=== PATIENT | male | born 1965 | race Caucasian/White ===

== ENCOUNTER 2020-05-21 12:00 | Outpatient (REF) | payer BC, SELFPAY ==
[2020-05-21 13:55] LABS: MANUAL DIFF FLAG NO
[2020-05-21 14:00] LABS: Basophils Percent Auto 0.4 % (0-2); Eosinophils Absolute Auto 0.1 X10*3/uL (0.0-0.4); Hematocrit 51.5 % (42-52); Imm Gran Abs Auto 0.04 X10*3/uL (0.00-0.03); Imm Gran Pct Auto 0.6 % (0.0-0.4); Lymphocytes Absolute Auto 2.3 X10*3/uL (1.2-4.9); Lymphocytes Percent Auto 31.3 % (20-40); Mean Corpuscular Hemoglobin 29.4 pg (27.0-33.0); Mean Corpuscular Volume 88.9 fL (80-98); Mean Platelet Volume 9.1 fL (9.4-12.4); Monocytes Absolute Auto 0.6 X10*3/uL (0.1-1.2); Monocytes Percent Auto 8.5 % (2-11); Neutrophils Absolute Auto 4.2 X10*3/uL (2.0-8.3); Neutrophils Percent Auto 58.2 % (45-73); Platelet Count 171 X10*3/uL (160-400); Red Blood Count 5.79 X10*6/uL (4.60-5.80); Red Cell Distribution Width 12.9 % (11.0-16.0); White Blood Count 7.2 X10*3/uL (4.8-10.8)
[2020-05-21 14:23] LABS: Anion Gap 15 (12-20); Blood Urea Nitrogen 19 mg/dL (9-16); Calcium 9.2 mg/dL (8.4-10.2); Carbon Dioxide 29 mmol/L (22-29); Chloride 100 mmol/L (96-108); Cholesterol 192 mg/dL; Estimated Glomerular Filt Rate > 60; Glucose Fasting 127 mg/dL (60-99); HDL Cholesterol 40 mg/dL; LDL Cholesterol Calculated 126 mg/dl; Sodium 140 mmol/L (135-145); Triglycerides 132 mg/dL
== END 2020-05-21 12:01 | disposition home or self-care (01) ==
LOC: HO.HMGCLDS 12:00
PROVIDERS: PCP Nurse Practitioner Family; Visit Provider Nurse Practitioner Family
DX: E11.9 Type 2 diabetes mellitus without complications (principal)
CPT/HCPCS: 36415; 80048; 80061; 85025

== ENCOUNTER → 2021-02-17 09:03 | Outpatient (BNVA) | payer BC, SELFPAY | PROVIDERS: PCP Nurse Practitioner Family; Referring Provider Nurse Practitioner Family; Visit Provider Physician Assistant ==

== ENCOUNTER 2021-03-10 07:13 | Outpatient (REF) | payer BC, SELFPAY ==
[2021-03-10 11:33] LABS: Appearance Urine CLEAR; Color Urine YELLOW; Glucose Urine UA >=1000 MG/DL (NEG); Leukocyte Esterase Urine NEG (NEG); Nitrite Urine NEG (NEG); UACC Culture Trigger NO; Urine Blood 1+ (NEG); Urine Ketones 15 MG/DL (NEG); Urine Protein NEG (NEG-TRACE)
[2021-03-10 11:59] LABS: Mucus Urine TRACE /LPF; Squamous Epithelial Cell Urine TRACE /LPF; WBC Urine 0 /HPF (0-4)
[2021-03-10 12:01] LABS: Estimated Average Glucose 200 mg/dL; Hemoglobin A1c % 8.6 %
[2021-03-10 12:21] LABS: Alanine Aminotransferase 29 U/L (0-40); Albumin Level 4.4 g/dL (3.5-5.0); Alkaline Phosphatase 65 U/L (39-117); Anion Gap 14 (12-20); Aspartate Amino Transferase 21 U/L (5-37); Bilirubin Total 1.4 mg/dL (0.0-1.0); Blood Urea Nitrogen 18 mg/dL (9-16); Carbon Dioxide 23 mmol/L (22-29); Chloride 104 mmol/L (96-108); Cholesterol 197 mg/dL; Estimated Glomerular Filt Rate > 60; Glucose Fasting 161 mg/dL (60-99); HDL Cholesterol 37 mg/dL; LDL Cholesterol Calculated 129 mg/dl; Potassium 4.1 mmol/L (3.3-5.1); Sodium 137 mmol/L (135-145); Total Protein 6.4 g/dL (6.5-8.0); Triglycerides 159 mg/dL
[2021-03-10 12:28] LABS: Creatinine Urine 73.63 mg/dL; Microalbum/Creatinine Ratio Ur 13.5 ug/mg cr
[2021-03-10 12:31] LABS: Prostate Specific Antigen Scr 0.26 ng/mL (<0.05-4.0)
== END 2021-03-10 07:14 | disposition home or self-care (01) ==
LOC: HO.HMGCLDS 07:13
PROVIDERS: PCP Nurse Practitioner Family; Visit Provider Nurse Practitioner Family
DX: Z00.00 Encounter for general adult medical examination without abnormal findings (principal); Z12.5 Encounter for screening for malignant neoplasm of prostate; E11.9 Type 2 diabetes mellitus without complications
CPT/HCPCS: 36415; 80053; 80061; 81001; 82043; 83036; 84153; 84443

== ENCOUNTER 2021-03-26 10:47 | Day surgery (SDC) | payer BC, SELFPAY ==
[2021-03-19 16:30] VITALS: BMI 29.7
--- NOTE | 2021-03-25 12:54 | HO.ANESPROP2 ---
Documented by User: Marce Figueroa NP 03/25/21 12:58 HPI - Anesthesia Eval Consult details Narrative: 55yo M for Colonoscopy Eliquis for DVT - OK to hold [address] Clara MEDINA Active Problems Active Problems: All Active Problems (Updated 02/17/21 @ 09:42 by Maile Carver PA-C) Screening for colon cancer (Acute) Screening PSA (prostate specific antigen) (Acute) Physical exam (Acute) Screening PSA (prostate specific antigen) (Acute) DVT (deep venous thrombosis) (Chronic) Diabetes (Acute) Past Medical History Medical History (Updated 03/26/21 @ 11:02 by Georgia Stephens RN) Anal fistula Diabetes DVT (deep venous thrombosis) Elevated cholesterol Family History Family History Father No problems noted. Mother Pancreatic cancer Paternal Grandfather No problems noted. Brother Myocardial infarction Sister Breast cancer Surgical History Surgical History (Updated 03/26/21 @ 11:02 by Georgia Stephens RN) Hx of colonoscopy Social History Social History Housing: Apartment Alcohol intake: current Alcohol intake frequency: a few times a week Patient Tobacco Use Status: Current everyday Tobacco user Tobacco use type: Cigarette Cigarettes Per Day: 10 Second Hand Smoke Exposure: No Use of substances other than those prescribed or required for medical reasons: Yes Substance Use Frequency: Occasionally Are you DNR?: No Advance Directives: No Advance Directives Information Provided: Yes Current occupational status: employed Meds Allergies Allergy/AdvReac Type Severity Reaction Status Date / Time amoxicillin [Amoxicillin] Allergy Unknown UNKNOWN Verified 03/26/21 11:02 erythromycin base Allergy Unknown Unknown Verified 03/26/21 11:02 Environmental Allergy Unknown RUNNY NOSE Uncoded 03/17/21 09:57 Home Medications Medication Instructions Recorded Confirmed Last Taken Type loratadine 10 mg tablet (Allergy 10 mg PO DAILY PRN 12/01/20 03/17/21 Unknown History Relief (loratadine)) boron 6 mg tablet 3 mg PO 03/26/21 Unknown History cholecalciferol (vitamin D3) 25 25 mcg PO DAILY 03/26/21 03/26/21 Unknown History mcg (1,000 unit) tablet (Vitamin D3) cinnamon bark 500 mg capsule 1,000 mg PO DAILY 03/26/21 03/26/21 Unknown History (Cinnamon) empagliflozin 25 mg tablet 10 mg PO DAILY 03/26/21 03/26/21 05:30 History omega-3 fatty acids PO 03/26/21 Unknown History vitamin B complex 1 cap PO DAILY 03/26/21 03/26/21 Unknown History Exam Exam Date and Time: March 25, 2021 1254 Height,Weight and Vital Signs: Height 5 ft 7 in Weight 86.183 kg Pertinent Lab Results Pertinent Lab Results: Laboratory Tests 10/23/20 03/10/21 15:51 07:26 WBC 6.9 Hgb 16.9 Hct 50.2 Plt Count 143 L Sodium 137 Potassium 4.1 Chloride 104 Carbon Dioxide 23 BUN 18 H Creatinine 0.78 Assessment and Plan Assessment Anesthesia Assessment: Chart Reviewed Documented by User: Chi Santoyo 03/26/21 12:49 PMFSH Past Medical History Medical History (Updated 03/26/21 @ 11:02 by Georgia Stephens RN) Anal fistula Diabetes DVT (deep venous thrombosis) Elevated cholesterol Functional capacity: independent ambulation Family History Family History Father No problems noted. Mother Pancreatic cancer Paternal Grandfather No problems noted. Brother Myocardial infarction Sister Breast cancer Family history of problems with anesthesia: No Surgical History Surgical History (Updated 03/26/21 @ 11:02 by Georgia Stephens RN) Hx of colonoscopy History of Problems with Anesthesia: No Social History Social History Housing: Apartment Alcohol intake: current Alcohol intake frequency: a few times a week Patient Tobacco Use Status: Current everyday Tobacco user Tobacco use type: Cigarette Cigarettes Per Day: 10 Second Hand Smoke Exposure: No Use of substances other than those prescribed or required for medical reasons: Yes Substance Use Frequency: Occasionally Are you DNR?: No Advance Directives: No Advance Directives Information Provided: Yes Current occupational status: employed Meds Allergies Allergy/AdvReac Type Severity Reaction Status Date / Time amoxicillin [Amoxicillin] Allergy Unknown UNKNOWN Verified 03/26/21 11:02 erythromycin base Allergy Unknown Unknown Verified 03/26/21 11:02 Environmental Allergy Unknown RUNNY NOSE Uncoded 03/17/21 09:57 Home Medications Medication Instructions Recorded Confirmed Last Taken Type loratadine 10 mg tablet (Allergy 10 mg PO DAILY PRN 12/01/20 03/17/21 Unknown History Relief (loratadine)) boron 6 mg tablet 3 mg PO 03/26/21 Unknown History cholecalciferol (vitamin D3) 25 25 mcg PO DAILY 03/26/21 03/26/21 Unknown History mcg (1,000 unit) tablet (Vitamin D3) cinnamon bark 500 mg capsule 1,000 mg PO DAILY 03/26/21 03/26/21 Unknown History (Cinnamon) empagliflozin 25 mg tablet 10 mg PO DAILY 03/26/21 03/26/21 05:30 History omega-3 fatty acids PO 03/26/21 Unknown History vitamin B complex 1 cap PO DAILY 03/26/21 03/26/21 Unknown History Exam Airway Mallampati Class: II TM Dist: >3cm Neck ROM: Full Loose/Missing/Broken Teeth: Yes Heart: rrr Lungs: bl breath sounds Assessment and Plan Final Anesthetic Review Family History of Problems with Anesthesia: No History of Problems with Anesthesia: No NPO: Yes ASA Class: II Final Preanesthetic Review: Meds/Allgs Chart Reviewed Patient Risk: Intermediate Procedure Risk: Intermediate Anesthetic Plan Anesthetic Plan: MAC: Disposition: Standard PACU
[2021-03-26 11:29] VITALS: BP 128/71; PULSE 73; RESP 16; TEMP 36.9; O2SAT 97
--- NOTE | 2021-03-26 11:33 | MHC.SHP ---
Pre-Procedural Eval Section A Date of Service: 03/26/21 The patient is an INPATIENT: No The History & Physical has been completed within 30 days and I have reviewed it.: No Section B Chief Complaint: Screening Details of Present Illness: colon cancer screening Relevant Family History (Specify if Yes): Yes Relevant Social History: Tobacco Use Present Medications: see Short Stay Collaborative assessment Medical History: Significant History (Anal fistula Diabetes DVT (deep venous thrombosis)) History of Previous Operations: Relevant previous surgery/procedure and date(s) (Hx of colonoscopy) Allergies: Allergies Allergy/AdvReac Type Severity Reaction Status Date / Time amoxicillin [Amoxicillin] Allergy Unknown UNKNOWN Verified 03/26/21 11:02 erythromycin base Allergy Unknown Unknown Verified 03/26/21 11:02 Environmental Allergy Unknown RUNNY NOSE Uncoded 03/17/21 09:57 Review of Systems Sugical H&P ROS: Negative: Constitution, Cardiovascular, Respiratory and Gastrointestinal Exam Surgical H&P Exam: Normal: Heart, Normal: Lungs, Normal: Extremities and Normal: Abdomen Plan Diagnosis/Plan: Unchanged I have reviewed the history and physical and performed a pertinent physical examination on my patient. No changes have occurred unless specified.
[2021-03-26] MEDS: Lactated Ringers 1,000 ML 100 ML IVCONT (11:44)
[2021-03-26 11:55] LABS: Glucose, Whole Blood 79 mg/dL (60-115)
--- NOTE | 2021-03-26 12:58 | W.PM.OPN ---
Operative Note Operative Note Date of Service: 03/26/21 Narrative: Pre-op diagnosis:?colon cancer screening Post-op diagnosis:?other (colon polyp, diverticulosis) Procedure:? COLONOSCOPY TILL CECUM WITH BIOPSIES Consent: Indications for the procedure and potential complications of bleeding, perforation, reaction to medications and missed diagnosis were discussed with the patient and informed consent was obtained. Instrument: Olympus PCF H 190 L variable stiffness pediatric colonoscope Monitoring: Vital signs and clinical assessment, intermittent blood pressure monitoring, continuous EKG monitoring, Pulse oximetry and Carbon Dioxide monitoring were done throughout the procedure. Colon withdrawl time was 21 minutes. Procedure: The patient was placed in the left lateral decubitis position and pre-procedure medications were administered. After a digital rectal examination of the ano-rectum, the video colonoscope was inserted into the rectum and advanced through the colon to the cecum. The colonoscope was slowly withdrawn in a retrograde panoramic fashion and the colon mucosa was carefully examined including a retroflexed view of the rectum. Findings and interventions are described below. Procedure Difficulty: Without difficulty Findings: Terminal Ileum: Not evaluated Cecum:? Normal Ascending Colon:? Normal Transverse Colon:? A 4-5 mm sessile polyp removed with a cold bx. Descending Colon:? Normal Sigmoid Colon:? Mild diverticulosis Rectum:? Normal Ano-rectum:? Normal Colon preparation:? Good? after some irrigation Impression and Post Procedure Diagnosis: Colonoscopy Findings: One small polyp removed Moderate diverticulosis seen in the []colon Moderate hemorrhoids on retroflexed exam. Plan: Await pathology results Patient has an appointment on 04/08/21 in the [facility] with JAVIER Avila. Repeat Colonoscopy interval based on path results - in 3-5 years if polyps are adenomatous and 10 years if polyps are hyperplastic. Above findings were reviewed with the patient and [colon polyps] and [diverticulosis] handouts were given in the discharge area Surgeon:?Alpesh Lilly MD Anesthesia:?MAC (Dr Santoyo) Was an Construction Administrator used for this Procedure?:?No Construction Administrator:?Mi Sotelo Estimated blood loss (mL):?0 Pathology:?other (A. transverse colon polyp) Condition:?stable Disposition:?PACU
[2021-03-26 13:52] VITALS: BP 105/55; PULSE 74; RESP 12; TEMP 36.7; O2SAT 100
[2021-03-26 14:11] VITALS: BP 120/63; PULSE 64; RESP 16; TEMP 36.7; O2SAT 99
== END 2021-03-26 15:38 | disposition home or self-care (01) ==
PROVIDERS: PCP Nurse Practitioner Family; Visit Provider Internal Medicine Gastroenterology
PROC: 0DJD8ZZ Inspection of Lower Intestinal Tract, Via Natural or Artificial Opening Endoscopic (ICD-10-PCS; CPT 45378; principal; 2021-03-26 12:00)
DX: Z12.11 Encounter for screening for malignant neoplasm of colon (principal); K63.5 Polyp of colon; K57.30 Diverticulosis of large intestine without perforation or abscess without bleeding; K64.8 Other hemorrhoids; I82.4Z1 Acute embolism and thrombosis of unspecified deep veins of right distal lower extremity; E78.00 Pure hypercholesterolemia, unspecified; E11.9 Type 2 diabetes mellitus without complications; Z79.84 Long term (current) use of oral hypoglycemic drugs; Z79.02 Long term (current) use of antithrombotics/antiplatelets; Z79.899 Other long term (current) drug therapy
CPT/HCPCS: 45380; 82947; 88305

== ENCOUNTER 2022-05-18 12:11 | Outpatient (REF) | payer BC, SELFPAY ==
[2022-05-18 13:55] LABS: MANUAL DIFF FLAG NO
[2022-05-18 14:15] LABS: Basophils Percent Auto 0.4 % (0-2); Eosinophils Percent Auto 0.4 % (0-4); Hematocrit 51.1 % (42.0-52.0); Imm Gran Abs Auto 0.03 X10*3/uL (0.00-0.03); Imm Gran Pct Auto 0.4 % (0.0-0.4); Lymphocytes Percent Auto 23.7 % (20-40); Mean Corpuscular HGB Conc 33.3 g/dl (31.0-36.0); Mean Corpuscular Hemoglobin 29.7 pg (27.0-33.0); Mean Corpuscular Volume 89.2 fL (80.0-98.0); Mean Platelet Volume 8.5 fL (9.4-12.4); Monocytes Absolute Auto 0.7 X10*3/uL (0.1-1.2); Monocytes Percent Auto 8.3 % (2-11); Neutrophils Absolute Auto 5.5 x10*3/uL (2.0-8.3); Neutrophils Percent Auto 66.8 % (45-73); Platelet Count 184 X10*3/uL (160-400); Red Blood Count 5.73 X10*6/uL (4.60-5.80); Red Cell Distribution Width 13.4 % (11.0-16.0); White Blood Count 8.2 X10*3/uL (4.8-10.8)
[2022-05-18 14:31] LABS: Estimated Average Glucose 180 mg/dL; Hemoglobin A1c % 7.9 %
[2022-05-18 14:42] LABS: Alanine Aminotransferase 26 U/L (0-40); Albumin Level 4.5 g/dL (3.5-5.0); Alkaline Phosphatase 64 U/L (39-117); Anion Gap 14 (12-20); Aspartate Amino Transferase 17 U/L (5-37); Bilirubin Total 0.9 mg/dL (0.0-1.0); Blood Urea Nitrogen 18 mg/dL (9-16); Calcium 9.3 mg/dL (8.4-10.2); Carbon Dioxide 25 mmol/L (22-29); Chloride 103 mmol/L (96-108); Cholesterol 241 mg/dL; Estimated Glomerular Filt Rate > 60; Glucose Fasting 132 mg/dL (60-99); HDL Cholesterol 53 mg/dL; LDL Cholesterol Calculated 170 mg/dl; Potassium 3.7 mmol/L (3.3-5.1); Sodium 138 mmol/L (135-145); Total Protein 6.7 g/dL (6.5-8.0); Triglycerides 92 mg/dL
[2022-05-18 14:49] LABS: TSH reflex Free T4 1.27 uIU/mL (0.32-4.0)
[2022-05-18 14:51] LABS: Appearance Urine Clear; Color Urine Yellow; Glucose Urine UA 500 mg/dL (Negative); Leukocyte Esterase Urine Negative (Negative); Nitrite Urine Negative (Negative); UMIC TRIGGER UACC YES; Urine Blood Large (3+) (Negative); Urine Ketones Trace mg/dL (Negative); Urine Protein Negative (Neg-Trace)
[2022-05-18 14:58] LABS: Bacteria Urine None Seen (None Seen); Hyaline Casts Urine 0-2 /LPF (0-2); RBC Urine >20 /HPF (0-2); Squamous Epithelial Cell Urine 0-2 /HPF (0-2); WBC Urine 0-5 /HPF (0-5)
[2022-05-18 15:56] LABS: Microalbum/Creatinine Ratio Ur 15.2 ug/mg cr
== END 2022-05-18 12:12 | disposition home or self-care (01) ==
LOC: HO.HMGCLDS 12:11
PROVIDERS: PCP Nurse Practitioner Family; Visit Provider Nurse Practitioner Family
DX: E11.9 Type 2 diabetes mellitus without complications (principal)
CPT/HCPCS: 36415; 80053; 80061; 81001; 82043; 83036; 84443; 85025

== ENCOUNTER → 2022-05-20 13:09 | Outpatient (BNVA) | payer BC, SELFPAY | PROVIDERS: PCP Nurse Practitioner Family; Visit Provider Nurse Practitioner Family | DX: N40.0 Benign prostatic hyperplasia without lower urinary tract symptoms (principal); N53.14 Retrograde ejaculation; R31.29 Other microscopic hematuria | CPT/HCPCS: 51798 ==

== ENCOUNTER 2022-09-17 17:17 | Emergency (ER) | payer BC, SELFPAY ==
--- NOTE | ~2022-09-17 | XR_ITS ---
EXAMINATION: XR FOREARM, LEFT CLINICAL INFORMATION: Trauma COMPARISON: None available. TECHNIQUE: AP and lateral views of the left forearm were obtained. FINDINGS: The bones and soft tissues are normal. No fracture. Imaged portions of the elbow and wrist are unremarkable. XR/XR forearm LT 2V IMPRESSION: Normal left forearm.
[2022-09-17 17:23] VITALS: BP 131/67; PULSE 74; RESP 18; TEMP 36.4; O2SAT 96; BMI 26.9
--- NOTE | 2022-09-17 17:30 | ED.GENADULT ---
HPI - General Adult General Chief complaint: Extremity Problem Stated complaint: Left lower arm crushed in ladder Time Seen by Provider: 09/17/22 17:48 Source: patient, RN notes reviewed and old records reviewed Mode of arrival: ambulatory Limitations: no limitations History of Present Illness HPI narrative: 57-year-old male presents for evaluation of left forearm pain. Patient reports that he was working with a ladder. He states that the ladder was spring-loaded Patient reports that while maneuvering the latter ?it slammed shut and my it left forearm got caught in the ladder. ? Patient reports that the latter has a 175 lb force applied with a sprain. He states that his arm was trapped for approximately 5 minutes Patient states his pain is mild but he has some tingling sensation to his left 5th and part of his left 4th fingers. No wounds noted He is able to move his elbow, wrist and all fingers Related Data Home Medications Medication Instructions Recorded Confirmed loratadine 10 mg tablet (Allergy 10 mg PO DAILY PRN Allergy Symptoms 12/01/20 05/20/22 Relief (loratadine)) boron 6 mg tablet 3 mg PO 03/26/21 05/20/22 cholecalciferol (vitamin D3) 25 25 mcg PO DAILY 03/26/21 05/20/22 mcg (1,000 unit) tablet (Vitamin D3) cinnamon bark 500 mg capsule 1,000 mg PO DAILY 03/26/21 05/20/22 (Cinnamon) omega-3 fatty acids PO 03/26/21 05/20/22 vitamin B complex 1 cap PO DAILY 03/26/21 05/20/22 Previous Rx's Medication Instructions Recorded lancets 28 gauge (FreeStyle #100 ea 02/14/20 Lancets) blood sugar diagnostic (FreeStyle 1 strip miscellaneous BID for 04/21/20 Lite Strips) diabetes mellitus 50 days #100 strips atorvastatin 10 mg tablet 10 mg PO DAILY #90 tabs 08/07/21 nirmatrelvir 300 mg (150 mg See Rx Instructions PO .COMPLEX 03/07/22 x2)-ritonavir 100 mg tablet,dose #30 ea pack(EUA) (Paxlovid) apixaban 5 mg tablet (Eliquis) 5 mg PO BID #180 tabs 03/08/22 varenicline 0.5 mg tablet 0.5 mg PO BID 30 days #60 tabs 05/25/22 empagliflozin 25 mg tablet 25 mg PO DAILY 90 days #90 tabs 06/14/22 doxycycline monohydrate 100 mg 100 mg PO BID 7 days #14 caps 08/13/22 capsule Allergies Allergy/AdvReac Type Severity Reaction Status Date / Time amoxicillin [Amoxicillin] Allergy Unknown UNKNOWN Verified 08/13/22 09:21 erythromycin base Allergy Unknown Unknown Verified 08/13/22 09:21 Environmental Allergy Unknown RUNNY NOSE Uncoded 08/13/22 09:21 Review of Systems Musculoskeletal: Musculoskeletal: Reports tingling and Reports other (left forearm pain) Neurologic: Reports tingling PMFSH Past Medical History Medical History Anal fistula Diabetes DVT (deep venous thrombosis) Elevated cholesterol Surgical History Hx of colonoscopy Family History Family History Father No problems noted. Mother Pancreatic cancer Paternal Grandfather No problems noted. Brother Myocardial infarction Sister Breast cancer Social History Social History Housing: Apartment Alcohol intake: current Alcohol intake frequency: a few times a week Patient Tobacco Use Status: Former Tobacco user Tobacco use type: Cigarette Years Smoked: quit 05/05/21 Smoked in Last 30 Days: Yes e-Cigarette/Vaping Use: Never Used Second Hand Smoke Exposure: No Use of substances other than those prescribed or required for medical reasons: Yes Substance Use Type: Marijuana Advance Directives: No Advance Directives Information Provided: No Current occupational status: employed Physical Exam ED Vital Signs: Vital Signs - 24 hr 09/17/22 17:23 Temperature 97.5 F Pulse Rate 74 Respiratory Rate 18 Blood Pressure 131/67 Pulse Oximetry 96 Oxygen Delivery Method Room Air BMI result Body Mass Index 26.9 Const General: healthy appearing, comfortable, no acute distress, alert and awake Nutritional Appearance: well nourished Orientation/consciousness: patient oriented x3 Neck Neck: Yes full ROM Resp Effort & Inspection: normal respiratory effort, able to speak in complete sentences, no audible wheezes and not labored Auscultation: clear to auscultation bilaterally Skin General skin exam: no rashes or lesions noted and elasticity normal Neuro General: patient oriented x3 Cranial nerves: Yes Bilaterally intact EOM present Cognition (Neuro): normal cognition Extrem Other: Patient has a small area of redness to the left forearm on the ventral surface. No open wounds. Minimal edema GERD patient's compartments are soft. He has full range of motion flexion extension the left elbow. Full range of motion flexion extension left wrist. He is able to easily make a fist and extend all 5 fingers of left hand. Radial pulses are 2+ equal. Capillary refill less than 2 seconds to all fingers. Gross sensation is intact to all fingers left hand. Course Course Course Narrative: 57-year-old male presents for evaluation of left forearm pain. He reports that he got his arm stuck ?in a spring-loaded ladder for about 5 minutes. ? Patient states that the spring has 175 lb of force that was compressing his arm. He reports tingling to the left 4th and 5th fingers in a classic ulnar nerve distribution. He has good sensation, good movement to all digits of the left hand. Radial pulses 2+ equal. Capillary refill is less than 2 seconds. No obvious hematoma. The patient is on Eliquis for DVT. An x-ray of the left forearm was ordered Medical Decision Making Medical Decision Making MDM Narrative: Would x-ray left forearm given the patient's trauma. He has some tingling sensation in the and ulnar radiculopathy pattern. No evidence of compartment syndrome. The patient is on Eliquis for DVTs but there is no evident hematoma or bleeding. I did discuss potential warning signs for compartment syndrome so the patient can be aware and return to the ER if necessary Differential Diagnosis Contusion Arm fracture ulnar radiculopathy Hematoma Independent Interpretation I performed an independent interpretation of an: Plain X-Ray (No obvious fracture of the left forearm) Discharge Plan Discharge Clinical Impression: Contusion of forearm, left, Ulnar nerve compression Patient Disposition: Home, Self-Care Instructions: Contusion in Adults (ED) Additional Instructions: Your x-ray was negative for fracture. Decompression from the ladder likely caused the tingling sensation you are feeling in your hand. This is called an ulnar radiculopathy. It should resolve on its own Return to the ER immediately if you develop severe, cruciate and pain, unable to move your hand or fingers, or if the hand or fingers or change in color. This could be a sign of compartment syndrome. Prescriptions: No Action (DME) lancets [FreeStyle Lancets] 28 gauge misc See Rx Instructions .ROUTE .MEDSUPPLY Qty: 100 4RF Rx Instructions: As directed blood sugar diagnostic [FreeStyle Lite Strips] Strip 1 strip miscellaneous BID 50 Days Qty: 100 2RF atorvastatin 10 mg tablet 10 mg PO DAILY Qty: 90 4RF Paxlovid (EUA) 300 mg (150 mg x 2)-100 mg tablets,dose pack See Rx Instructions PO .COMPLEX Qty: 30 0RF Rx Instructions: take TWO 150 mg tablets of nirmatrelvir with ONE 100 mg tablet of ritonavir twice daily for 5 days PO Eliquis 5 mg tablet 5 mg PO BID Qty: 180 0RF varenicline 0.5 mg tablet 0.5 mg PO BID 30 Days Qty: 60 0RF empagliflozin 25 mg tablet 25 mg PO DAILY 90 Days Qty: 90 1RF boron 6 mg Tablet 3 mg PO vitamin B complex Capsule 1 cap PO DAILY omega-3 fatty acids Capsule PO cinnamon bark [Cinnamon] 500 mg Capsule 1,000 mg PO DAILY cholecalciferol (vitamin D3) [Vitamin D3] 25 mcg (1,000 unit) Tablet 25 mcg PO DAILY loratadine [Allergy Relief (loratadine)] 10 mg tablet 10 mg PO DAILY PRN (Reason: Allergy Symptoms) doxycycline monohydrate 100 mg capsule 100 mg PO BID 7 Days Qty: 14 0RF
--- NOTE | 2022-09-17 17:59 | PC.NURSE ---
Pt sitting in chair in room, airway open and patent, no obvious signs of distress, no difficulty/labored breathing, equal chest rise and fall. Pt a&ox4, skin color normal for ethnicity, warm, and dry. Pt reports that he crushed his left forearm in a ladder, complaining of 3/10 pain as well as some numbness in his hand. Pt also on blood thinner. Inspection of arm has a reddened area on forearm and some slight edema to the area.
[2022-09-17 18:35] VITALS: BP 138/79; PULSE 67; RESP 16; TEMP 36.7; O2SAT 95
== END 2022-09-17 18:39 | disposition home or self-care (01) ==
PROVIDERS: Emergency Provider Internal Medicine; PCP Nurse Practitioner Family
DX: S50.12XA Contusion of left forearm, initial encounter (principal); W23.1XXA Caught, crushed, jammed, or pinched between stationary objects, initial encounter; G56.22 Lesion of ulnar nerve, left upper limb; Y93.89 Activity, other specified; Y92.019 Unspecified place in single-family (private) house as the place of occurrence of the external cause; Y99.9 Unspecified external cause status; Z86.718 Personal history of other venous thrombosis and embolism; Z79.01 Long term (current) use of anticoagulants
CPT/HCPCS: 73090; 99283; 99284

== ENCOUNTER 2022-10-19 10:23 | Outpatient (REF) | payer BC, SELFPAY ==
[2022-10-19 11:17] LABS: MANUAL DIFF FLAG NO
[2022-10-19 11:35] LABS: Basophils Percent Auto 0.6 % (0-2); Eosinophils Absolute Auto 0.2 X10*3/uL (0.0-0.4); Hematocrit 49.7 % (42.0-52.0); Hemoglobin 16.4 g/dl (14.0-18.0); Imm Gran Abs Auto 0.04 X10*3/uL (0.00-0.03); Imm Gran Pct Auto 0.6 % (0.0-0.4); Lymphocytes Absolute Auto 1.8 X10*3/uL (1.2-4.9); Lymphocytes Percent Auto 28.3 % (20-40); Mean Corpuscular Hemoglobin 29.3 pg (27.0-33.0); Mean Corpuscular Volume 88.8 fL (80.0-98.0); Mean Platelet Volume 8.6 fL (9.4-12.4); Monocytes Absolute Auto 0.6 X10*3/uL (0.1-1.2); Monocytes Percent Auto 9.4 % (2-11); Neutrophils Absolute Auto 3.7 x10*3/uL (2.0-8.3); Neutrophils Percent Auto 58.1 % (45-73); Platelet Count 165 X10*3/uL (160-400); Red Cell Distribution Width 12.9 % (11.0-16.0); White Blood Count 6.4 X10*3/uL (4.8-10.8)
[2022-10-19 11:50] LABS: Estimated Average Glucose 186 mg/dL; Hemoglobin A1c % 8.1 %
[2022-10-19 12:08] LABS: Appearance Urine Clear; Color Urine Yellow; Glucose Urine UA >=1000 mg/dL (Negative); Leukocyte Esterase Urine Negative (Negative); Nitrite Urine Negative (Negative); PH 6.5 (5.0-9.0); Specific Gravity - Urine >= 1.030 (1.005-1.025); UMIC TRIGGER UACC YES; Urine Blood Trace (Negative); Urine Ketones Negative (Negative); Urine Protein Negative (Neg-Trace)
[2022-10-19 12:15] LABS: Bacteria Urine None Seen (None Seen); Hyaline Casts Urine 0-2 /LPF (0-2); Squamous Epithelial Cell Urine 0-2 /HPF (0-2); WBC Urine 0-5 /HPF (0-5)
[2022-10-19 12:19] LABS: Alanine Aminotransferase 29 U/L (0-40); Alkaline Phosphatase 69 U/L (39-117); Anion Gap 14 (12-20); Aspartate Amino Transferase 15 U/L (5-37); Bilirubin Total 0.9 mg/dL (0.0-1.0); Blood Urea Nitrogen 17 mg/dL (9-16); Calcium 9.4 mg/dL (8.4-10.2); Carbon Dioxide 25 mmol/L (22-29); Chloride 103 mmol/L (96-108); Cholesterol 217 mg/dL; Estimated Glomerular Filt Rate > 60; Glucose Fasting 169 mg/dL (60-99); HDL Cholesterol 36 mg/dL; LDL Cholesterol Calculated 130 mg/dl; Sodium 138 mmol/L (135-145); Total Protein 6.6 g/dL (6.5-8.0); Triglycerides 257 mg/dL
[2022-10-19 12:27] LABS: Prostate Specific Antigen 0.33 ng/mL (<0.05-4.0); TSH reflex Free T4 1.09 uIU/mL (0.32-4.0)
[2022-10-19 12:56] LABS: Creatinine Urine 39.37 mg/dL; Microalbumin Urine < 5.0 mg/L
== END 2022-10-19 10:24 | disposition home or self-care (01) ==
LOC: HO.HMGCLDS 10:23
PROVIDERS: Nurse Practitioner Family; PCP Nurse Practitioner Family; Visit Provider Nurse Practitioner Family
DX: Z12.5 Encounter for screening for malignant neoplasm of prostate (principal); N40.0 Benign prostatic hyperplasia without lower urinary tract symptoms; E11.9 Type 2 diabetes mellitus without complications
CPT/HCPCS: 36415; 80053; 80061; 81001; 81003; 82043; 83036; 84153; 84443; 85025

== ENCOUNTER 2022-11-19 20:45 | Inpatient (IN) | payer BC, SELFPAY ==
--- NOTE | 2022-11-19 | ECG_ITS ---
Test Reason : CHEST PAIN Blood Pressure : / mmHG Vent. Rate : 076 BPM Atrial Rate : 076 BPM P-R Int : 146 ms QRS Dur : 088 ms QT Int : 404 ms P-R-T Axes : 045 046 -20 degrees QTc Int : 454 ms Normal sinus rhythm ST & T wave abnormality, consider inferior ischemia Abnormal ECG When compared with ECG of 21-NOV-2014 09:39, ST now depressed in Anterolateral leads T wave inversion now evident in Inferior leads ST elevation in leads III Referred By: Generic ED Physician Electronically Signed By:VERONICA ZULETA MD
[2022-11-19 20:50] VITALS: BP 133/86; PULSE 77; RESP 18; TEMP 36.9; O2SAT 95; BMI 34.6
--- NOTE | 2022-11-19 20:55 | ED.GENADULT ---
HPI - General Adult General Chief complaint: Extremity Injury, Upper Stated complaint: pain in L arm/fatigue/nausea Time Seen by Provider: 11/19/22 21:52 Source: patient, RN notes reviewed and old records reviewed Mode of arrival: ambulatory Limitations: no limitations History of Present Illness HPI narrative: 57-year-old male past medical history significant for diabetes, hyperlipidemia, DVT on Eliquis, heart murmur, tobacco dependence presents for evaluation of chest pain. Patient reports for last 3 days he has had intermittent left-sided upper chest pain. His pain radiates into his left forearm as well as the left side of his neck Currently reports he is chest pain-free He states that his pain is not related to exertion and can be random Patient denies any personal history of cardiac disease He states that his brother and sister both had MIs Patient also notes that he had a crush injury to his left forearm about 2 months ago and is concerned that is related to his symptoms The patient also endorses a very stressful time at work currently Related Data Home Medications Medication Instructions Recorded Confirmed loratadine 10 mg tablet (Allergy 10 mg PO DAILY PRN Allergy Symptoms 12/01/20 11/20/22 Relief (loratadine)) boron 6 mg tablet 3 mg PO DAILY 03/26/21 11/20/22 cholecalciferol (vitamin D3) 25 25 mcg PO DAILY 03/26/21 11/20/22 mcg (1,000 unit) tablet (Vitamin D3) cinnamon bark 500 mg capsule 1,000 mg PO DAILY 03/26/21 11/20/22 (Cinnamon) omega-3 fatty acids PO 03/26/21 10/19/22 vitamin B complex 1 cap PO DAILY 03/26/21 11/20/22 copper gluconate 2 mg capsule 2 mg PO DAILY 10/15/22 11/20/22 zinc gluconate 30 mg tablet 30 mg PO DAILY 10/15/22 11/20/22 rosuvastatin 5 mg tablet 5 mg PO DAILY 11/20/22 Previous Rx's Medication Instructions Recorded lancets 28 gauge (FreeStyle #100 ea 02/14/20 Lancets) blood sugar diagnostic (FreeStyle 1 strip miscellaneous BID for 04/21/20 Lite Strips) diabetes mellitus 50 days #100 strips apixaban 5 mg tablet (Eliquis) 5 mg PO BID #180 tabs 11/01/22 empagliflozin 25 mg tablet 25 mg PO DAILY 90 days #90 tabs 06/14/22 fluticasone propionate 50 1 spray intranasal DAILY #16 grams 10/15/22 mcg/actuation nasal spray,suspension (Flonase Allergy Relief) Allergies Allergy/AdvReac Type Severity Reaction Status Date / Time amoxicillin [Amoxicillin] Allergy Unknown UNKNOWN Verified 10/19/22 15:23 erythromycin base Allergy Unknown Unknown Verified 10/19/22 15:23 Environmental Allergy Unknown RUNNY NOSE Uncoded 10/19/22 15:23 Review of Systems Constitutional: Constitutional: Reports as per HPI, Denies chills, Denies fatigue, Denies fever(s) and Denies headache(s) ENT: Denies headache(s) Cardiovascular: Cardiovascular: Reports chest pain and Denies dyspnea Respiratory: Respiratory: Denies cough and Denies dyspnea Gastrointestinal: Gastrointestinal: Denies abdominal pain, Denies constipation and Denies vomiting Genitourinary: Genitourinary: Denies difficulty urinating and Denies dysuria Neurologic: Denies headache(s) and Denies focal weakness Endocrine: Endocrine: Denies fatigue PMFSH Past Medical History Medical History Anal fistula Diabetes DVT (deep venous thrombosis) Elevated cholesterol Surgical History Hx of colonoscopy Family History Family History Father No problems noted. Mother Pancreatic cancer Mental health disorder Paternal Grandfather No problems noted. Brother Myocardial infarction Mental health disorder Sister Breast cancer Social History Social History Housing: Apartment Alcohol intake: current Alcohol intake frequency: holidays/special occasions only Patient Tobacco Use Status: Never used Tobacco Tobacco use type: Cigarette Cigarette Packs Per Day: 0.5 Cigarettes Per Day: 10 Years Smoked: quit 05/05/21 Smoked in Last 30 Days: No e-Cigarette/Vaping Use: Never Used Second Hand Smoke Exposure: No Use of substances other than those prescribed or required for medical reasons: No Substance Use Type: Marijuana Advance Directives: No Advance Directives Information Provided: No Current occupational status: employed Cognitive needs: No Hearing needs: No Vision needs: No Physical Exam ED Vital Signs: Vital Signs - 24 hr 11/19/22 20:50 11/19/22 21:15 11/19/22 22:26 Temperature 98.4 F 98.6 F Pulse Rate 77 72 67 Respiratory Rate 18 20 14 Blood Pressure 133/86 124/69 123/67 Pulse Oximetry 95 96 98 Oxygen Delivery Method Room Air Room Air Room Air 11/19/22 23:41 Temperature 98.5 F Pulse Rate 67 Respiratory Rate 15 Blood Pressure 130/78 Pulse Oximetry 98 Oxygen Delivery Method Room Air BMI result Body Mass Index 34.9 Const General: healthy appearing, comfortable, no acute distress, alert and awake Nutritional Appearance: well nourished Orientation/consciousness: patient oriented x3 HENMT Head: Yes normocephalic and Yes atraumatic Eyes Eyelids: Yes eyelids normal Conjunctivae: conjunctivae normal Sclerae: sclerae normal Corneas: corneas normal Pupils: Equal, round and reactive pupils present EOM: EOMs intact bilaterally Neck Neck: Yes full ROM Resp Effort & Inspection: normal respiratory effort, able to speak in complete sentences and not labored Cardio Rate: regular rate Rhythm: regular rhythm Skin General skin exam: no rashes or lesions noted and elasticity normal Neuro General: patient oriented x3 Cranial nerves: Yes Equal, round and reactive pupils present and Yes Bilaterally intact EOM present Cognition (Neuro): normal cognition Extrem Other: Moving all extremities well without any obvious deformities Course Course Course Narrative: RME - 57 yo male with history of DM, BPH presenting with left arm pain radiating to the left chest and neck that started 3 days ago. The pain started after Reevaluation(s) Reevaluation #1: Dr Marcum approached me regarding concerns for inferior STEMI in patient with ongoing LUE pain and rising troponins. He was started on heparin and admitted last night, but it is my opinion that patient has a STEMI with some improvement in ST elevation since being started on heparin. I have facilitated discussion between hospitalist and [facility] interventional cardiology for PCI as it is my opinion that patient should be immediately transferred. Time: 08:33 Medications Administered Generic Name Dose Route Start Last Admin Trade Name Freq PRN Reason Stop Dose Admin Acetaminophen 650 mg 11/19/22 23:47 11/20/22 07:51 Acetaminophen 325 Mg Tablet PO 650 mg Q6H PRN Administration Pain, Mild (Pain Scale 1-3) Aspirin 81 mg 11/20/22 09:00 11/20/22 07:50 Aspirin Enteric Coated 81 Mg Tablet. PO 81 mg DAILY BENJIE Administration Heparin Sodium (Porcine) 3,400 unit 11/19/22 22:49 11/20/22 07:44 Heparin Sodium,Porcine 5,000 Unit/Ml Vial 40 unit/kg (3400 unit) 3,400 unit IVPUSH Administration PROTOCOL BOLUS PRN 40 unit/kg - Heparin Protocol Protocol Heparin Sodium/Sodium Chloride 25,000 unit in 250 mls @ 0 mls/hr 11/19/22 23:00 11/20/22 07:45 Heparin Sodium,Porcine/1/2ns IVCONT 14.07 units/kg/hr .Q0M BENJIE 11.79 mls/hr Titration Protocol Per Protocol Pravastatin Sodium 40 mg 11/20/22 00:10 11/20/22 04:43 Pravastatin Sodium 40 Mg Tablet PO Not Given BEDTIME BENJIE Sodium Chloride 3 ml 11/20/22 00:00 11/20/22 08:01 0.9 % Sodium Chloride Flush 3 Ml Syringe IVFLUSH Not Given QSHIFT BENJIE Discontinued Medications Generic Name Dose Route Start Last Admin Trade Name Freq PRN Reason Stop Dose Admin Aspirin 324 mg 11/19/22 22:23 11/19/22 22:36 Aspirin 81 Mg Tab.Chew PO 11/19/22 22:24 324 mg ONCE ONE Administration Clopidogrel Bisulfate 300 mg 11/19/22 23:13 11/19/22 23:23 Clopidogrel Bisulfate 300 Mg Tablet PO 11/19/22 23:14 300 mg ONCE ONE Administration Metoprolol Succinate 12.5 mg 11/19/22 22:42 11/19/22 23:23 Metoprolol Succinate Er 12.5 Mg Halftab.Er.24h PO 11/19/22 22:43 12.5 mg ONCE ONE Administration Protocol Ticagrelor 180 mg 11/19/22 22:42 11/19/22 23:23 Ticagrelor 90 Mg Tablet PO 11/19/22 22:43 180 mg ONCE ONE Administration Medical Decision Making Medical Decision Making [facility] Narrative: Prior to my evaluation of the patient I received a call the patient has a critical troponin of 976.6. I found his EKG at the time which did show ST and T-wave abnormalities with questionable slight ST elevation in lead 3 and AVF with reciprocal changes of ST depressions in V5 and V6. When I went to evaluate the patient he told me that he was currently chest pain-free. At that time we administered aspirin and decided to repeat his EKG. His repeat EKG shows similar morphology although the ST depressions in the lateral leads have improved he now has some degree of ST elevation in lead 2. He remains chest pain-free. Discussed with my attending, Dr. Gonzalez who recommends starting heparin, Brilinta and beta-markus. I sent the images to Cardiology, Dr. Diaz to evaluate the EKGs. Still awaiting call back. Differential Diagnosis Chest pain Coronary artery disease Unstable angina NSTEMI STEMI Consult Healthcare Provider Management of the patient was discussed with: Hearing Screen Coordinator (cardiology, Dr Diaz) Dr. Diaz reviewed the patient's EKGs and history and recommends admitting the patient here with heparin but without a bolus. Lab Data MDM Lab Attestation statement: I reviewed the patient's lab results. No leukocytosis, no significant anemia. Patient has no significant electrolyte abnormalities. His BUN is very slightly elevated 21. Troponin critical at 976.6 11/19/22 20:58 11/19/22 20:58 Labs: Lab Results 11/19/22 11/19/22 11/19/22 Range/Units 20:58 20:58 20:58 WBC 8.4 (4.8-10.8) X10*3/uL RBC 5.48 (4.60-5.80) X10*6/uL Hgb 16.2 (14.0-18.0) g/dl Hct 48.8 (42.0-52.0) % MCV 89.1 (80.0-98.0) fL MCH 29.6 (27.0-33.0) pg MCHC 33.2 (31.0-36.0) g/dl RDW 13.3 (11.0-16.0) % Plt Count 153 L (160-400) X10*3/uL MPV 8.3 L (9.4-12.4) fL Immature Gran % (Auto) 0.4 (0.0-0.4) % Neut % (Auto) 61.5 (45-73) % Lymph % (Auto) 27.8 (20-40) % [place] % (Auto) 8.1 (2-11) % Eos % (Auto) 1.7 (0-4) % Baso % (Auto) 0.5 (0-2) % Lymph # (Auto) 2.3 (1.2-4.9) X10*3/uL [place] # (Auto) 0.7 (0.1-1.2) X10*3/uL Eos # (Auto) 0.1 (0.0-0.4) X10*3/uL Baso # (Auto) 0.0 (0.0-0.2) X10*3/uL Abs Immat Gran (auto) 0.03 (0.00-0.03) X10*3/uL Absolute Neuts (auto) 5.2 (2.0-8.3) x10*3/uL Absolute Nucleated RBC 0.000 (0.0-0.012) X10*3/uL Nucleated RBC % (auto) 0.0 (0.0-0.2) /100WBC PT (10.0-13.1) SEC INR (0.9-1.1) aPTT Heparin Protocol (53-77.9) SEC Sodium 138 (135-145) mmol/L Potassium 4.3 (3.3-5.1) mmol/L Chloride 105 (96-108) mmol/L Carbon Dioxide 20 L (22-29) mmol/L Anion Gap 17 (12-20) BUN 21 H (9-16) mg/dL Creatinine 0.84 (0.5-1.4) mg/dL Estim Creat Clear Calc 87.6 Estimated GFR > 60 Random Glucose 209 H (60-115) mg/dL Calcium 9.3 (8.4-10.2) mg/dL Magnesium 1.9 (1.6-2.6) mg/dL Total Bilirubin 0.4 (0.0-1.0) mg/dL Direct Bilirubin 0.1 (0.0-0.5) mg/dL AST 107 H (5-37) U/L ALT 193 H (0-40) U/L Alkaline Phosphatase 81 (39-117) U/L Troponin I High Sens 976.6 H* (<3.5-35.0) ng/L Total Protein 6.8 (6.5-8.0) g/dL Albumin 4.2 (3.5-5.0) g/dL 07/15/23 07/15/23 07/15/23 Range/Units 22:49 22:49 22:49 WBC 8.2 (4.8-10.8) X10*3/uL RBC 5.31 (4.60-5.80) X10*6/uL Hgb 15.7 (14.0-18.0) g/dl Hct 46.7 (42.0-52.0) % MCV 87.9 (80.0-98.0) fL MCH 29.6 (27.0-33.0) pg MCHC 33.6 (31.0-36.0) g/dl RDW 13.2 (11.0-16.0) % Plt Count 151 L (160-400) X10*3/uL MPV 8.5 L (9.4-12.4) fL Immature Gran % (Auto) (0.0-0.4) % Neut % (Auto) (45-73) % Lymph % (Auto) (20-40) % [place] % (Auto) (2-11) % Eos % (Auto) (0-4) % Baso % (Auto) (0-2) % Lymph # (Auto) (1.2-4.9) X10*3/uL [place] # (Auto) (0.1-1.2) X10*3/uL Eos # (Auto) (0.0-0.4) X10*3/uL Baso # (Auto) (0.0-0.2) X10*3/uL Abs Immat Gran (auto) (0.00-0.03) X10*3/uL Absolute Neuts (auto) (2.0-8.3) x10*3/uL Absolute Nucleated RBC 0.000 (0.0-0.012) X10*3/uL Nucleated RBC % (auto) 0.0 (0.0-0.2) /100WBC PT 10.8 (10.0-13.1) SEC INR 0.9 (0.9-1.1) aPTT Heparin Protocol 27.9 L (53-77.9) SEC Sodium (135-145) mmol/L Potassium (3.3-5.1) mmol/L Chloride (96-108) mmol/L Carbon Dioxide (22-29) mmol/L Anion Gap (12-20) BUN (9-16) mg/dL Creatinine (0.5-1.4) mg/dL Estim Creat Clear Calc Estimated GFR Random Glucose (60-115) mg/dL Calcium (8.4-10.2) mg/dL Magnesium (1.6-2.6) mg/dL Total Bilirubin (0.0-1.0) mg/dL Direct Bilirubin (0.0-0.5) mg/dL AST (5-37) U/L ALT (0-40) U/L Alkaline Phosphatase (39-117) U/L Troponin I High Sens 1171.1 H* (<3.5-35.0) ng/L Total Protein (6.5-8.0) g/dL Albumin (3.5-5.0) g/dL Independent Interpretation I performed an independent interpretation of an: EKG (Sinus rhythm with rate of [address] depressions in leads V [address] elevation in lead 3.) Interpretation: Repeat EKG shows slightly more pronounced ST elevation in lead 2, 3, and AVF. Reciprocal changes in the lateral leads have resolved Critical Care Time Critical Care Time Critical Care Time: Yes Total Critical Care Time: 50 Attestation: Patient has EKG changes with presentation of chest pain though he is chest pain-free at the time my evaluation. Elevated troponin, diagnosis of acute coronary syndrome. Discussed with Cardiology and the patient will be admitted to the medical service on heparin. He was given aspirin, Brilinta, metoprolol and Plavix Discharge Plan Discharge Clinical Impression: Chest pain, ACS (acute coronary syndrome) Patient Disposition: Admitted As Inpatient
[2022-11-19 21:06] LABS: MANUAL DIFF FLAG NO
[2022-11-19 21:07] LABS: Basophils Percent Auto 0.5 % (0-2); Eosinophils Absolute Auto 0.1 X10*3/uL (0.0-0.4); Eosinophils Percent Auto 1.7 % (0-4); Hematocrit 48.8 % (42.0-52.0); Hemoglobin 16.2 g/dl (14.0-18.0); Imm Gran Abs Auto 0.03 X10*3/uL (0.00-0.03); Imm Gran Pct Auto 0.4 % (0.0-0.4); Lymphocytes Absolute Auto 2.3 X10*3/uL (1.2-4.9); Lymphocytes Percent Auto 27.8 % (20-40); Mean Corpuscular HGB Conc 33.2 g/dl (31.0-36.0); Mean Corpuscular Hemoglobin 29.6 pg (27.0-33.0); Mean Corpuscular Volume 89.1 fL (80.0-98.0); Mean Platelet Volume 8.3 fL (9.4-12.4); Monocytes Absolute Auto 0.7 X10*3/uL (0.1-1.2); Monocytes Percent Auto 8.1 % (2-11); Neutrophils Absolute Auto 5.2 x10*3/uL (2.0-8.3); Neutrophils Percent Auto 61.5 % (45-73); Platelet Count 153 X10*3/uL (160-400); Red Blood Count 5.48 X10*6/uL (4.60-5.80); Red Cell Distribution Width 13.3 % (11.0-16.0); White Blood Count 8.4 X10*3/uL (4.8-10.8)
[2022-11-19 21:15] VITALS: BP 124/69; PULSE 72; RESP 20; TEMP 37; O2SAT 96
[2022-11-19 21:23] LABS: Alanine Aminotransferase 193 U/L (0-40); Albumin Level 4.2 g/dL (3.5-5.0); Alkaline Phosphatase 81 U/L (39-117); Anion Gap 17 (12-20); Aspartate Amino Transferase 107 U/L (5-37); Bilirubin Direct 0.1 mg/dL (0.0-0.5); Bilirubin Total 0.4 mg/dL (0.0-1.0); Blood Urea Nitrogen 21 mg/dL (9-16); Calcium 9.3 mg/dL (8.4-10.2); Carbon Dioxide 20 mmol/L (22-29); Chloride 105 mmol/L (96-108); Creatinine Clr Calc Pharmacy 87.6; Estimated Glomerular Filt Rate > 60; Glucose Random 209 mg/dL (60-115); Magnesium 1.9 mg/dL (1.6-2.6); Potassium 4.3 mmol/L (3.3-5.1); Sodium 138 mmol/L (135-145); Total Protein 6.8 g/dL (6.5-8.0)
[2022-11-19 21:52] LABS: Troponin-I High Sensitivity 976.6 ng/L (<3.5-35.0)
--- NOTE | 2022-11-19 22:23 | ECG_ITS ---
Test Reason : pain Blood Pressure : / mmHG Vent. Rate : 066 BPM Atrial Rate : 066 BPM P-R Int : 130 ms QRS Dur : 084 ms QT Int : 428 ms P-R-T Axes : 000 144 166 degrees QTc Int : 448 ms Normal sinus rhythm Left posterior fascicular block ST & T wave abnormality, consider inferior ischemia Abnormal ECG When compared with ECG of 19-NOV-2022 20:51, Left posterior fascicular block is now Present ST elevation now present in leads II and aVF ST no longer depressed in Anterolateral leads T wave inversion now evident in Lateral leads Referred By: Bunny Cook Electronically Signed By:VERONICA ZULETA MD
[2022-11-19 22:26] VITALS: BP 123/67; PULSE 67; RESP 14; O2SAT 98
[2022-11-19] MEDS: Aspirin 81 MG TAB.CHEW 324 MG PO (22:36)
[2022-11-19 22:46] VITALS: BMI 34.9
[2022-11-19 22:57] LABS: Hematocrit 46.7 % (42.0-52.0); Hemoglobin 15.7 g/dl (14.0-18.0); Mean Corpuscular HGB Conc 33.6 g/dl (31.0-36.0); Mean Corpuscular Hemoglobin 29.6 pg (27.0-33.0); Mean Corpuscular Volume 87.9 fL (80.0-98.0); Mean Platelet Volume 8.5 fL (9.4-12.4); Platelet Count 151 X10*3/uL (160-400); Red Blood Count 5.31 X10*6/uL (4.60-5.80); Red Cell Distribution Width 13.2 % (11.0-16.0); White Blood Count 8.2 X10*3/uL (4.8-10.8)
[2022-11-19 23:07] LABS: INTERNATIONAL NORM RATIO 0.9 (0.9-1.1); Prothrombin Time 10.8 SEC (10.0-13.1)
[2022-11-19 23:10] LABS: PTT Heparin Drip 27.9 SEC (53-77.9)
[2022-11-19] MEDS: Clopidogrel Bisulfate 300 MG TABLET PO (23:23)
[2022-11-19] MEDS: Metoprolol Succinate ER 12.5 MG HALFTAB.ER.24H PO (23:23)
[2022-11-19] MEDS: Ticagrelor 90 MG TABLET 180 MG PO (23:23)
[2022-11-19 23:30] LABS: Troponin-I High Sensitivity 1171.1 ng/L (<3.5-35.0)
[2022-11-19 23:41] VITALS: BP 130/78; PULSE 67; RESP 15; TEMP 36.9; O2SAT 98
[2022-11-19] MEDS: Heparin Sodium,Porcine/1/2NS 25,000 UNIT/250 ML IV.SOLN 8.38 UNIT IVCONT (23:44)
[2022-11-19 23:49] VITALS: BP 121/68; PULSE 64; RESP 18; O2SAT 99
--- NOTE | 2022-11-20 | ECG_ITS ---
Test Reason : CP Blood Pressure : / mmHG Vent. Rate : 060 BPM Atrial Rate : 066 BPM P-R Int : 144 ms QRS Dur : 088 ms QT Int : 428 ms P-R-T Axes : 067 069 060 degrees QTc Int : 428 ms Sinus rhythm with Premature atrial complexes Inferior ST elevatons with reciprocal changes in lateral leads Abnormal ECG When compared with ECG of 19-NOV-2022 22:22, Premature atrial complexes are now Present T wave inversion no longer evident in Inferior leads Referred By: Caitlin Marcum Electronically Signed By:Gurmeet De Jesus
--- NOTE | 2022-11-20 00:12 | MHC.EDTECH ---
patient 0000 rounding done ,vitals sign taken ,belongings list done and its in patient chart ,patient is awake and on his phone .
--- NOTE | 2022-11-20 00:56 | MHC.EDTECH ---
PATIENT RANG CHAN TO USE BATHROOM ,URINAL GIVEN ,PATIENT VOID 750 ML ,PATIENT ASKED FOR A CAN OF [place] ,IT WAS GIVEN ,EXTRA PILLOWS AND WARM BLANKET GIVEN ,PT ON HIS PHONE .
--- NOTE | 2022-11-20 02:15 | MHC.EDTECH ---
0200 rounding done ,pt sleeping .
[2022-11-20 06:00] VITALS: BP 112/76; PULSE 56; RESP 17; TEMP 36.7; O2SAT 96
--- NOTE | 2022-11-20 06:46 | PM.IMHP ---
History of Present Illness Date of Service: 11/19/22 Chief Complaint: Chest pain 49-year-old male with past medical history of DVT on Eliquis, diabetes, hypertension, comes into the hospital with complaints of left-sided arm discomfort, soreness, pain in the muscle, as well as left shoulder, and neck pain. The pain was intermittent, started a day and a half prior to presentation, at rest, resolved spontaneously, lasting 20-30 minutes each time. No previous similar episode. Patient was concerned because he thought this may be muscle pain due to a previous injury he had on his arm but the pain was not resolving therefore he came to seek medical management. Patient otherwise denies any shortness of breath, no headache or change in vision, no abdominal pain nausea or vomiting, no diarrhea constipation, no urinary symptoms and no lower extremity edema. On arrival to the ED patient is hemodynamically stable Labs are significant for an initial troponin of 976 that increased 1171, T-wave inversions in [address] depression in lateral leads V3, V4 V5 V6. Patient started on heparin drip and will be admitted for further management Review of Systems Review of Systems: Yes all other systems are reviewed and are negative [facility] Medical History Anal fistula Diabetes DVT (deep venous thrombosis) Elevated cholesterol Family History Father No problems noted. Mother Pancreatic cancer Mental health disorder Paternal Grandfather No problems noted. Brother Myocardial infarction Mental health disorder Sister Breast cancer Surgical History Hx of colonoscopy Social History Housing: Apartment Alcohol intake: current Alcohol intake frequency: holidays/special occasions only Patient Tobacco Use Status: Never used Tobacco Tobacco use type: Cigarette Cigarette Packs Per Day: 0.5 Cigarettes Per Day: 10 Years Smoked: quit 05/05/21 Smoked in Last 30 Days: No e-Cigarette/Vaping Use: Never Used Second Hand Smoke Exposure: No Use of substances other than those prescribed or required for medical reasons: No Substance Use Type: Marijuana Advance Directives: No Advance Directives Information Provided: No Current occupational status: employed Cognitive needs: No Hearing needs: No Vision needs: No Meds Allergies Allergy/AdvReac Type Severity Reaction Status Date / Time amoxicillin [Amoxicillin] Allergy Unknown UNKNOWN Verified 10/19/22 15:23 erythromycin base Allergy Unknown Unknown Verified 10/19/22 15:23 Environmental Allergy Unknown RUNNY NOSE Uncoded 10/19/22 15:23 Active Medications: Current Medications Acetaminophen (Acetaminophen 325 Mg Tablet) 650 mg PO Q6H PRN PRN Reason: Pain, Mild (Pain Scale 1-3) Aspirin (Aspirin Enteric Coated 81 Mg Tablet.Dr) 81 mg PO DAILY [facility] Heparin Sodium (Porcine) (Heparin Sodium,Porcine 5,000 Unit/Ml Vial) 3,400 unit 40 unit/kg (3400 unit) IVPUSH PROTOCOL BOLUS PRN; Protocol PRN Reason: 40 unit/kg - Heparin Protocol Heparin Sodium (Porcine) (Heparin Sodium,Porcine 5,000 Unit/Ml Vial) 6,700 unit 80 unit/kg (6700 unit) IVPUSH PROTOCOL BOLUS PRN; Protocol PRN Reason: 80 unit/kg - Heparin Protocol Heparin Sodium/Sodium Chloride (Heparin Sodium,Porcine/1/2ns) 25,000 unit in 250 mls @ 0 mls/hr IVCONT .Q0M [facility]; Protocol Last Titration: 11/20/22 00:06 Dose: 11.93 units/kg/hr, 10 mls/hr Ondansetron HCl (Ondansetron Hcl 4 Mg/2 Ml Vial) 4 mg IVPUSH Q8H PRN PRN Reason: Nausea and Vomiting Pravastatin Sodium (Pravastatin Sodium 40 Mg Tablet) 40 mg PO BEDTIME [facility] Last Admin: 11/20/22 04:43 Dose: Not Given Sodium Chloride (0.9 % Sodium Chloride Flush 3 Ml Syringe) 3 ml IVFLUSH QSHIFT [facility] Last Admin: 11/20/22 01:25 Dose: Not Given Home Medications Medication Instructions Recorded Confirmed Last Taken Type loratadine 10 mg tablet (Allergy 10 mg PO DAILY PRN Allergy Symptoms 12/01/20 10/19/22 Unknown History Relief (loratadine)) boron 6 mg tablet 3 mg PO 03/26/21 10/19/22 Unknown History cholecalciferol (vitamin D3) 25 25 mcg PO DAILY 03/26/21 10/19/22 Unknown History mcg (1,000 unit) tablet (Vitamin D3) cinnamon bark 500 mg capsule 1,000 mg PO DAILY 03/26/21 10/19/22 Unknown History (Cinnamon) omega-3 fatty acids PO 03/26/21 10/19/22 Unknown History vitamin B complex 1 cap PO DAILY 03/26/21 10/19/22 Unknown History copper gluconate 2 mg capsule 2 mg PO DAILY 10/15/22 10/19/22 Unknown History zinc gluconate 30 mg tablet 30 mg PO DAILY 10/15/22 10/19/22 Unknown History Physical Exam Vital Signs and Narrative: Vital Signs: Last Vital Signs Temp 98.0 F 11/20/22 06:00 Pulse 56 11/20/22 06:00 Resp 17 11/20/22 06:00 BP 112/76 11/20/22 06:00 Pulse Ox 96 11/20/22 06:00 O2 Del Method Room Air 11/20/22 06:00 BMI result Body Mass Index 34.9 Results Labs 11/19/22 22:49 11/19/22 20:58 Labs: Laboratory Results - last 24 hr 11/19/22 11/19/22 11/19/22 20:58 20:58 20:58 MCV 89.1 MCH 29.6 MCHC 33.2 RDW 13.3 Plt Count 153 L MPV 8.3 L Immature Gran % (Auto) 0.4 Neut % (Auto) 61.5 Lymph % (Auto) 27.8 Webb % (Auto) 8.1 Eos % (Auto) 1.7 Baso % (Auto) 0.5 Lymph # (Auto) 2.3 Webb # (Auto) 0.7 Eos # (Auto) 0.1 Baso # (Auto) 0.0 Abs Immat Gran (auto) 0.03 Absolute Neuts (auto) 5.2 Absolute Nucleated RBC 0.000 Nucleated RBC % (auto) 0.0 PT INR aPTT Heparin Protocol Anion Gap 17 Estim Creat Clear Calc 87.6 Estimated GFR > 60 Random Glucose 209 H Calcium 9.3 Magnesium 1.9 Total Bilirubin 0.4 Direct Bilirubin 0.1 AST 107 H ALT 193 H Alkaline Phosphatase 81 Troponin I High Sens 976.6 H* Total Protein 6.8 Albumin 4.2 11/19/22 11/19/22 11/19/22 22:49 22:49 22:49 MCV 87.9 MCH 29.6 MCHC 33.6 RDW 13.2 Plt Count 151 L MPV 8.5 L Immature Gran % (Auto) Neut % (Auto) Lymph % (Auto) Webb % (Auto) Eos % (Auto) Baso % (Auto) Lymph # (Auto) Webb # (Auto) Eos # (Auto) Baso # (Auto) Abs Immat Gran (auto) Absolute Neuts (auto) Absolute Nucleated RBC 0.000 Nucleated RBC % (auto) 0.0 PT 10.8 INR 0.9 aPTT Heparin Protocol 27.9 L Anion Gap Estim Creat Clear Calc Estimated GFR Random Glucose Calcium Magnesium Total Bilirubin Direct Bilirubin AST ALT Alkaline Phosphatase Troponin I High Sens 1171.1 H* Total Protein Albumin Assessment and Plan (1) ACS (acute coronary syndrome): Status: Acute Plan This is a 49-year-old male past medical history DVT on Eliquis, diabetes, hypertension comes into the hospital with complaints of chest pain found to have NSTEMI # acute NSTEMI/ACS - typical left-sided chest pain left arm pain, neck pain - elevated troponin, EKG changes suggestive of ACS with T-wave inversions in inferior leads, ST depressions in lateral leads - start on heparin drip - will start him on high-dose statin, reports myalgias with atorvastatin, at this time will start him on pravastatin - daily aspirin - echocardiogram - heart rate in the low 50s to 60s, will hold off starting beta-blockers pending echocardiogram and cardiology consult - consult Cardiology # diabetes - hold oral antihyperglycemics - start low-dose sliding scale insulin # history of DVT - hold Eliquis - on heparin DVT prophylaxis: Heparin ggt Given patient's NSTEMI needing IV heparin patient require minimum 2 nights inpatient hospital stay for further management and monitoring Time Spent With Patient Time: Total time managing care of this patient today ____ minutes. Quality Stroke Does the patient have a stroke diagnosis?: No VTE Prior VTE?: No VTE Risk Level:: Medical - moderate - high VTE Device Contraindication: Treatment Not Indicated VTE Drug Contraindication: N/A - Med Ordered
[2022-11-20 07:10] LABS: Hematocrit 46.9 % (42.0-52.0); Hemoglobin 15.4 g/dl (14.0-18.0); Mean Corpuscular HGB Conc 32.8 g/dl (31.0-36.0); Mean Corpuscular Hemoglobin 29.2 pg (27.0-33.0); Mean Corpuscular Volume 88.8 fL (80.0-98.0); Mean Platelet Volume 8.4 fL (9.4-12.4); Platelet Count 151 X10*3/uL (160-400); Red Blood Count 5.28 X10*6/uL (4.60-5.80); Red Cell Distribution Width 13.1 % (11.0-16.0); White Blood Count 8.9 X10*3/uL (4.8-10.8)
[2022-11-20 07:12] LABS: INTERNATIONAL NORM RATIO 0.9 (0.9-1.1); Prothrombin Time 10.6 SEC (10.0-13.1)
[2022-11-20 07:14] LABS: PTT Heparin Drip 49.6 SEC (53-77.9)
[2022-11-20 07:20] LABS: Alanine Aminotransferase 146 U/L (0-40); Albumin Level 3.8 g/dL (3.5-5.0); Alkaline Phosphatase 60 U/L (39-117); Anion Gap 16 (12-20); Aspartate Amino Transferase 56 U/L (5-37); Bilirubin Total 1.2 mg/dL (0.0-1.0); Blood Urea Nitrogen 19 mg/dL (9-16); Calcium 9.1 mg/dL (8.4-10.2); Carbon Dioxide 21 mmol/L (22-29); Chloride 107 mmol/L (96-108); Creatinine Clr Calc Pharmacy 101.2; Estimated Glomerular Filt Rate > 60; Glucose Random 187 mg/dL (60-115); Potassium 3.8 mmol/L (3.3-5.1); Sodium 140 mmol/L (135-145); Total Protein 5.9 g/dL (6.5-8.0)
[2022-11-20 07:33] LABS: Troponin-I High Sensitivity 1497.7 ng/L (<3.5-35.0)
[2022-11-20] MEDS: Heparin Sodium,Porcine 5,000 UNIT/ML VIAL 3400 UNIT IVPUSH (07:44)
[2022-11-20] MEDS: Aspirin Enteric Coated 81 MG TABLET.DR PO (07:50)
[2022-11-20] MEDS: Acetaminophen 325 MG TABLET 650 MG PO (07:51)
--- NOTE | 2022-11-20 08:42 | MHC.EDTECH ---
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
--- NOTE | 2022-11-20 08:48 | MHC.EDTECH ---
@[phone] DR HEDRICK FROM [facility] INTERVENTIONAL CARDIOLOGY CALLS US BACK AND SPEAKS WITH DR CARD
--- NOTE | 2022-11-20 09:03 | MHC.EDTECH ---
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
--- NOTE | 2022-11-20 09:07 | P.DS_ITS ---
DS: Providers Provider Date of Service: 11/20/22 Date of admission: 11/19/22 23:49 Primary care physician: DEQUAN Ortiz Consults: 11/19/22 23:47 Consult to Cardiology Routine Consulting Provider: [facility] Cardiovascular Services Reason for consultation: NSTEMI Has provider been notified: Yes DS: Transfer Hospital Acceptance Reason for Transfer: STEMI Name of Facility: [facility] DS: Diagnosis Discharge Diagnosis (1) ACS (acute coronary syndrome): Status: Acute DS: Summary Hospital Course Hospital Course: Date of Service: 11/19/22 Chief Complaint: Chest pain 57-year-old male with past medical history of DVT on Eliquis, diabetes, hypertension, comes into the hospital with complaints of left-sided arm discomfort, soreness, pain in the muscle, as well as left shoulder, and neck pain.? The pain was intermittent, started a day and a half prior to presentation, at rest, resolved spontaneously, lasting 20-30 minutes each time.? No previous similar episode.? Patient was concerned because he thought this may be muscle pain due to a previous injury he had on his arm but the pain was not resolving therefore he came to seek medical management.? Patient otherwise denies any shortness of breath, no headache or change in vision, no abdominal pain nausea or vomiting, no diarrhea constipation, no urinary symptoms and no lower extremity edema.? On arrival to the ED patient is hemodynamically stable Labs are significant for an initial troponin of 976 that increased 1171, Patient treated in the emergency room with IV heparin, patient treated Plavix 300 mg, aspirin and statin Hospital course 57-year-old gentleman with past medical history significant for multiple coronary artery disease risk factors of hypertension diabetes hyperlipidemia on Eliquis for DVT presented to [facility] due to on and of left upper extremity discomfort with radiation to left side of the neck, not associated with shortness of breath diaphoresis or palpitation he denied any chest pressure or chest discomfort initially he felt pain is related to his prior left forearm injury that he sustained in September of 2022 but since pain was not resolving he came to the emergency room where he noted to have elevated troponin and EKG changes, patient was treated with IV heparin, Plavix 300 mg, statin and aspirin, beta- blockers were avoided due to low heart rate in 50s, since EKG suggestive of ST elevation in inferior leads with reciprocal ST depression in lateral leads, with ongoing left arm discomfort and rising troponin patient is being transferred to [facility] for cardiac catheterization. Time Spent with Patient Time attestation: Total time managing care of this patient today ____ minutes. Discharge coordination time: Greater than 30 minutes Quality: Safe Use of Opioids Does Pt have an Active Cancer Diagnosis on the Problem List?: No Quality: Stroke Does the patient have a stroke diagnosis?: No Physical Exam Vital Signs: Vital Signs: Last Vital Signs Temp 98.0 F 11/20/22 06:00 Pulse 56 11/20/22 06:00 Resp 17 11/20/22 06:00 BP 112/76 11/20/22 06:00 Pulse Ox 96 11/20/22 06:00 O2 Del Method Room Air 11/20/22 06:00 BMI result Body Mass Index 34.9 Const: Other: General awake ,alert x3 ,in no acute distress. Neck is supple no JVD. CVS regular rate rhythm, Respiratory lungs clear to auscultation, no respiratory distress, no wheeze, no rhonchi. Gastrointestinal abdomen soft, nontender, bowel sounds audible, no guarding , no rigidity. Extremities no edema. Neuro nonfocal , speech clear. Skin no rash Psych appropriate affect DS: Data Data Completed and Pending Labs on day of discharge: Laboratory Results - last 24 hr 11/19/22 11/19/22 11/19/22 20:58 20:58 20:58 WBC 8.4 RBC 5.48 Hgb 16.2 Hct 48.8 MCV 89.1 MCH 29.6 MCHC 33.2 RDW 13.3 Plt Count 153 L MPV 8.3 L Immature Gran % (Auto) 0.4 Neut % (Auto) 61.5 Lymph % (Auto) 27.8 [place] % (Auto) 8.1 Eos % (Auto) 1.7 Baso % (Auto) 0.5 Lymph # (Auto) 2.3 [place] # (Auto) 0.7 Eos # (Auto) 0.1 Baso # (Auto) 0.0 Abs Immat Gran (auto) 0.03 Absolute Neuts (auto) 5.2 Absolute Nucleated RBC 0.000 Nucleated RBC % (auto) 0.0 PT INR aPTT Heparin Protocol Sodium 138 Potassium 4.3 Chloride 105 Carbon Dioxide 20 L Anion Gap 17 BUN 21 H Creatinine 0.84 Estim Creat Clear Calc 87.6 Estimated GFR > 60 Random Glucose 209 H Calcium 9.3 Magnesium 1.9 Total Bilirubin 0.4 Direct Bilirubin 0.1 AST 107 H ALT 193 H Alkaline Phosphatase 81 Troponin I High Sens 976.6 H* Total Protein 6.8 Albumin 4.2 11/19/22 11/19/22 11/19/22 22:49 22:49 22:49 WBC 8.2 RBC 5.31 Hgb 15.7 Hct 46.7 MCV 87.9 MCH 29.6 MCHC 33.6 RDW 13.2 Plt Count 151 L MPV 8.5 L Immature Gran % (Auto) Neut % (Auto) Lymph % (Auto) [place] % (Auto) Eos % (Auto) Baso % (Auto) Lymph # (Auto) [place] # (Auto) Eos # (Auto) Baso # (Auto) Abs Immat Gran (auto) Absolute Neuts (auto) Absolute Nucleated RBC 0.000 Nucleated RBC % (auto) 0.0 PT 10.8 INR 0.9 aPTT Heparin Protocol 27.9 L Sodium Potassium Chloride Carbon Dioxide Anion Gap BUN Creatinine Estim Creat Clear Calc Estimated GFR Random Glucose Calcium Magnesium Total Bilirubin Direct Bilirubin AST ALT Alkaline Phosphatase Troponin I High Sens 1171.1 H* Total Protein Albumin 11/20/22 11/20/22 11/20/22 06:35 06:35 06:35 WBC 8.9 RBC 5.28 Hgb 15.4 Hct 46.9 MCV 88.8 MCH 29.2 MCHC 32.8 RDW 13.1 Plt Count 151 L MPV 8.4 L Immature Gran % (Auto) Neut % (Auto) Lymph % (Auto) [place] % (Auto) Eos % (Auto) Baso % (Auto) Lymph # (Auto) [place] # (Auto) Eos # (Auto) Baso # (Auto) Abs Immat Gran (auto) Absolute Neuts (auto) Absolute Nucleated RBC 0.000 Nucleated RBC % (auto) 0.0 PT 10.6 INR 0.9 aPTT Heparin Protocol 49.6 L D Sodium 140 Potassium 3.8 Chloride 107 Carbon Dioxide 21 L Anion Gap 16 BUN 19 H Creatinine 0.73 Estim Creat Clear Calc 101.2 Estimated GFR > 60 Random Glucose 187 H Calcium 9.1 Magnesium Total Bilirubin 1.2 H Direct Bilirubin AST 56 H ALT 146 H Alkaline Phosphatase 60 Troponin I High Sens Total Protein 5.9 L Albumin 3.8 11/20/22 06:35 WBC RBC Hgb Hct MCV MCH MCHC RDW Plt Count MPV Immature Gran % (Auto) Neut % (Auto) Lymph % (Auto) [place] % (Auto) Eos % (Auto) Baso % (Auto) Lymph # (Auto) [place] # (Auto) Eos # (Auto) Baso # (Auto) Abs Immat Gran (auto) Absolute Neuts (auto) Absolute Nucleated RBC Nucleated RBC % (auto) PT INR aPTT Heparin Protocol Sodium Potassium Chloride Carbon Dioxide Anion Gap BUN Creatinine Estim Creat Clear Calc Estimated GFR Random Glucose Calcium Magnesium Total Bilirubin Direct Bilirubin AST ALT Alkaline Phosphatase Troponin I High Sens 1497.7 H* Total Protein Albumin Discharge Plan Discharge Anticipated Discharge Date/Time: 11/20/22 08:57 Patient Disposition: Xfer Acute Care Hospital Discharge Diagnosis: ST-elevation IA Referrals: Aj Esteban, [employer] [Primary Care Provider] - 1 Week Discharge Medications: New heparin(porcine) in 0.45% NaCl 25,000 unit/250 mL Parenteral Solution 25,000 unit continuous IV infusion .Q0M Qty: 6000 0RF aspirin 81 mg Tablet,Delayed Release (Dr/Ec) 81 mg PO DAILY Qty: 3 0RF atorvastatin [Lipitor] 80 mg tablet 80 mg PO DAILY Qty: 30 0RF Continued (DME) lancets [FreeStyle Lancets] 28 gauge misc See Rx Instructions .ROUTE .MEDSUPPLY Qty: 100 4RF Rx Instructions: As directed blood sugar diagnostic [FreeStyle Lite Strips] Strip 1 strip miscellaneous BID 50 Days Qty: 100 2RF vitamin B complex Capsule 1 cap PO DAILY omega-3 fatty acids Capsule PO cholecalciferol (vitamin D3) [Vitamin D3] 25 mcg (1,000 unit) Tablet 25 mcg PO DAILY loratadine [Allergy Relief (loratadine)] 10 mg tablet 10 mg PO DAILY PRN (Reason: Allergy Symptoms) fluticasone propionate [Flonase Allergy Relief] 50 mcg/actuation spray,suspension 1 spray intranasal DAILY Qty: 16 0RF Rx Instructions: administer into each nostril Discontinued Eliquis 5 mg tablet 5 mg PO BID Qty: 180 0RF empagliflozin 25 mg tablet 25 mg PO DAILY 90 Days Qty: 90 1RF boron 6 mg Tablet 3 mg PO DAILY cinnamon bark [Cinnamon] 500 mg Capsule 1,000 mg PO DAILY rosuvastatin 5 mg tablet 5 mg PO DAILY zinc gluconate 30 mg tablet 30 mg PO DAILY copper gluconate 2 mg capsule 2 mg PO DAILY Discharge Orders: Discharge Order (Routine); Ordered 11/20/22 Ordered By: Caitlin Marcum Diet: npo Activity on Discharge: bedrest Stand Alone Forms: Patient Portal Discharge page Care Plan Goals: ST-elevation IA being transferred to [facility] for cardiac catheterization continue IV heparin, is statin and aspirin received Plavix 300 mg last night, also took Eliquis last evening use insulin sliding scale Health Concerns: Diabetes mellitus/hypertension/history of DVT on Eliquis Plan of Treatment: Transferred to [facility] for cardiac catheterization Assessment: a above
--- NOTE | 2022-11-20 09:12 | MHC.EDTECH ---
@[id number] CALL PLACED TO DONNELL LOOKING FOR THE STEMI TRUCK THEY HAVE NOT ARRIVED YET ESTABAN ANSWERS AND SAYS THEY SHOULD BE HERE, I ASKED HIM TO CHECK IN ON THEM THEY ARE NOT HERE
--- NOTE | 2022-11-20 09:16 | MHC.EDTECH ---
@[phone] DONNELL CREW HERE AT [employer] FOR PAPERWORK
--- NOTE | 2022-11-20 09:30 | MHC.EDTECH ---
DONNELL LEAVES THE BEDSIDE WITH PT TO [facility] CATH AT THIS TIME
--- NOTE | 2022-11-20 10:59 | P.EN_ITS ---
Event Note Date of Service: 11/20/22 Event Note: Patient was transferred to [facility] for ongoing symptoms prior to I consulting on him Time Spent With Patient Time: Total time managing care of this patient today ____ minutes.
--- NOTE | 2022-11-20 15:32 | MHC.CM.PN ---
Patient transferred to [facility] before being seen by case management.
== END 2022-11-20 18:00 | disposition short-term general hospital (02) | DRG 190 ==
LOC: HO.ED 23:20 → HO.EDOVER 11-20 00:38 → HO.IMC 11-20 17:35
PROVIDERS: Physician Assistant; Admitting Provider Internal Medicine; Emergency Provider Emergency Medicine; PCP Nurse Practitioner Family; Visit Provider Hospitalist
DX: I21.19 ST elevation (STEMI) myocardial infarction involving other coronary artery of inferior wall (principal); Z86.718 Personal history of other venous thrombosis and embolism; E78.00 Pure hypercholesterolemia, unspecified; Z79.01 Long term (current) use of anticoagulants; Z79.51 Long term (current) use of inhaled steroids; Z79.899 Other long term (current) drug therapy
CPT/HCPCS: 36415; 80048; 80053; 80076; 83735; 84484; 85025; 85027; 85610; 85730; 93005; 99285; J1643

== ENCOUNTER 2022-11-19 23:49 | Outpatient (BNV) | payer BC, SELFPAY | END 2022-11-20 08:17 | PROVIDERS: Admitting Provider Internal Medicine; Emergency Provider Emergency Medicine; PCP Nurse Practitioner Family; Visit Provider Internal Medicine Cardiovascular Disease | DX: I49.1 Atrial premature depolarization (principal); R94.31 Abnormal electrocardiogram [ECG] [EKG] | CPT/HCPCS: 93010 ==

== ENCOUNTER → 2022-11-19 23:49 | Outpatient (BNV) | payer BC, SELFPAY | PROVIDERS: Admitting Provider Internal Medicine; Emergency Provider Emergency Medicine; PCP Nurse Practitioner Family; Visit Provider Internal Medicine Cardiovascular Disease | DX: R07.9 Chest pain, unspecified (principal) | CPT/HCPCS: 93010; 99499 ==

== ENCOUNTER → 2022-11-19 23:49 | Outpatient (BNV) | payer BC, SELFPAY | PROVIDERS: Admitting Provider Internal Medicine; Emergency Provider Emergency Medicine; PCP Nurse Practitioner Family; Visit Provider Internal Medicine | DX: I24.9 Acute ischemic heart disease, unspecified (principal) | CPT/HCPCS: 99223; 99239 ==

== ENCOUNTER 2023-02-15 06:11 | Outpatient (REF) | payer BC, SELFPAY | END 2023-02-15 06:12 | disposition home or self-care (01) | LOC: HO.LAB 06:11 | PROVIDERS: PCP Nurse Practitioner Family; Visit Provider Nurse Practitioner Family | DX: E11.9 Type 2 diabetes mellitus without complications (principal) | CPT/HCPCS: 36415; 80053; 80061; 81001; 83036; 84443; 85025 ==

== ENCOUNTER 2023-02-16 09:22 | Outpatient (AMB) | payer BC, SELFPAY ==
[2023-02-16 09:28] VITALS: BP 136/70; PULSE 71; O2SAT 95; BMI 29.1
--- NOTE | 2023-02-16 09:28 | MHC.PC.OV ---
Vital Signs 02/16/23 09:28 Height 5 ft 7 in Weight 186 lb BMI 29.1 BP 136/70 Blood Pressure Location Rt brachial Position Sitting Pulse 71 Pulse Source Pulse Oximeter Pulse Oximetry (%) 95 Oxygen Delivery Method Room Air Intake Visit Reasons: 4 month follow up Allergies amoxicillin [Amoxicillin] Allergy (Unknown, Verified 02/16/23 09:30) UNKNOWN erythromycin base Allergy (Unknown, Verified 02/16/23 09:30) Unknown Environmental Allergy (Unknown, Uncoded 02/16/23 09:30) RUNNY NOSE Tobacco use date assessed: 10/19/22 Dental Screening Dental Screen Date: 02/16/23 Did you have a dental visit in the last 12 months?: No Did you have a dental problem in the last 6 months where you did not have access to dental care?: No Was dental information given to patient?: No HPI 4 month follow up HPI Details Pt is a diabetic, on an ARB and a statin. Last A1C was 7.7, microalbumin is up to date. Denies polyuria, polydipsia, and neuropathy. Pt denies any signs and symptoms of hypoglycemia and does know how to correct it. Discussed starting a GLP1 agonist, but pt states give me another 3 months. Pt was hospitalized in November for a STEMI/LOI to ostial RCA. Pt is following up with cardiology. He is also going to cardiac rehab twice a week. Pt reports doing well overall. Denies chest pain, shortness of breath, and dizziness. Pt has started smoking again intermittently. [facility] Medical History (Updated 02/16/23 @ 11:15 by DEQUAN Acuña) STEMI (ST elevation myocardial infarction) Elevated cholesterol DVT (deep venous thrombosis) Diabetes Anal fistula Surgical History Hx of colonoscopy Family History Father No problems noted. Mother Pancreatic cancer Mental health disorder Paternal Grandfather No problems noted. Brother Myocardial infarction Mental health disorder Sister Breast cancer Social History Housing: Apartment Alcohol intake: current Alcohol intake frequency: holidays/special occasions only Patient Tobacco Use Status: Current someday Tobacco user Tobacco use type: Cigarette Cigarette Packs Per Day: 0.5 Cigarettes Per Day: 10 Years Smoked: quit 05/05/21 e-Cigarette/Vaping Use: Never Used Second Hand Smoke Exposure: No Substance Use Type: Marijuana Current occupational status: employed Cognitive needs: No Hearing needs: No Vision needs: No Questionnaire Thrive Questionnaire Date Thrive assessed: 06/16/21 LORE-7 AMB Questionnaire LORE-7 Date LORE - 7 assessed: 06/16/21 Source: Developed by Drs. Héctor Mccullough, Mattie Tellez, Jose Tamez and colleagues, with an educational endy from [employer]. Review of Systems Const Reports as per HPI Physical exam (Primary Care) Vital Signs: Last Vital Signs Pulse 71 02/16/23 09:28 BP 136/70 02/16/23 09:28 Pulse Ox 95 02/16/23 09:28 Oxygen Delivery Method Room Air 02/16/23 09:28 BMI result Body Mass Index 29.1 Tobacco/Smoking Status: Tobacco use Status Tobacco use date assessed 10/19/22 02/16/23 09:37 Patient Tobacco Use Status Current someday Tobacco 02/16/23 09:37 Tobacco use type Cigarette 02/16/23 09:37 e-Cigarette/Vaping Use Never Used 02/16/23 09:37 Thrive Assessment: Date of Thrive Assessment Date Thrive assessed 06/16/21 02/16/23 09:37 Const General: cooperative Orientation/consciousness: patient oriented x3 Resp Effort & Inspection: normal respiratory effort Auscultation: clear to auscultation bilaterally Cardio Rate: regular rate Rhythm: regular rhythm Heart sounds: S1 normal heart sound present, S2 normal heart sound present and Murmur heart sound present systolic (faint) Neuro General: patient oriented x3 Extrem Other: bilat feet: + sensation with use of monofilament, feet intact Psych Appearance: grossly normal Mental Status: mental status grossly normal Speech and movement: Normal speech and movement present Affect: normal affect Attitude: cooperative Thought process: Normal thought process present Thought content: Normal thought content present Insight: Good insight present (Psych) Judgement: Good judgement present (Psych) Assessment and Plan Assessment & Plan (1) Diabetes: Code(s): E11.9 - Type 2 diabetes mellitus without complications Plan: Labs already performed (2) ACS (acute coronary syndrome): Code(s): I24.9 - Acute ischemic heart disease, unspecified Plan: Following up with cardiology (3) STEMI (ST elevation myocardial infarction): Code(s): I21.3 - ST elevation (STEMI) myocardial infarction of unspecified site Plan: Following up with cardiology Plan The patient agreed to the use of a biomedical equipment support specialist for this encounter. Scribed for DEQUAN Worthy by Nadira Lin biomedical equipment support specialist, on 02/16/2023 at 09:50 EST Coding Level of Care Code Est Pt Level 3 (24238) Diagnoses Diabetes E11.9 ACS (acute coronary syndrome) I24.9 STEMI (ST elevation myocardial infarction) I21.3
== END 2023-02-16 10:21 | disposition home or self-care (01) ==
PROVIDERS: PCP Nurse Practitioner Family; Visit Provider Nurse Practitioner Family
DX: E11.9 Type 2 diabetes mellitus without complications (principal); I24.9 Acute ischemic heart disease, unspecified; I25.2 Old myocardial infarction
CPT/HCPCS: 99213

== ENCOUNTER 2024-01-09 11:00 | Outpatient (REF) | payer BC, SELFPAY ==
--- NOTE | ~2024-01-09 | XR_ITS ---
EXAMINATION: XR CERVICAL SPINE CLINICAL INFORMATION: Patient fell. Pain COMPARISON: None available. TECHNIQUE: 3 views of the cervical spine were obtained. FINDINGS: Prevertebral soft tissues are normal. There is moderate disc space narrowing see C4, and C4-5 anterior posterior spurring no fracture or destructive process. Incidental note is made of calcifications overlying the right left common carotid bulbs. The lateral masses of C1 and odontoid are intact. XR/XR cervical spine 3V IMPRESSION: Degenerative changes noted but no fracture as questioned. Electronically signed by: Murali Negron MD 01/09/2024 03:46 PM EDT
== END 2024-01-09 11:01 | disposition home or self-care (01) ==
LOC: HO.XRAY 11:00
PROVIDERS: PCP Nurse Practitioner Family; Visit Provider Physical Medicine & Rehabilitation
DX: M54.2 Cervicalgia (principal)
CPT/HCPCS: 72040

== ENCOUNTER 2024-01-09 11:00 | Outpatient (AMB) | payer BC, SELFPAY ==
--- NOTE | 2024-01-09 11:09 | MHC.OFFVIS ---
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 Pt states he passed out 2 times on December 07 and hit his head. Pt states he has clicking, and pain in his neck that radiates to the the shoulder sometimes. Pt denies any previous injuries or surgeries to his neck or left arm. Pt states the pain and stiffness is worse in the morning. Allergies amoxicillin [Amoxicillin] Allergy (Unknown, Verified 01/09/24 11:09) UNKNOWN erythromycin base Allergy (Unknown, Verified 01/09/24 11:09) Unknown Environmental Allergy (Unknown, Uncoded 01/09/24 11:09) RUNNY NOSE Medication List - Last Reconciled 01/09/24 by Mita Cameron MD apixaban (Eliquis) 5 mg PO BID aspirin 81 mg PO DAILY cholecalciferol (vitamin D3) (Vitamin D3) 25 mcg PO DAILY clopidogrel 75 mg PO DAILY empagliflozin (Jardiance) 25 mg PO QAM lancets (FreeStyle Lancets) As directed losartan 25 mg PO DAILY meclizine 25 mg PO BID PRN 14 days metoprolol succinate ER 25 mg PO DAILY nicotine (polacrilex) (Nicorette) 2 mg buccal Q4-8H PRN [id number] oil 300-1,000 mg ([place]-3 Fish Oil) 1 cap PO DAILY rosuvastatin 5 mg PO DAILY vitamin B complex 1 cap PO DAILY HPI Comments Details: Was on his way to [employer] [facility] [employer] on 12/08/23, while in the concert parking lot. He did not take drugs. He had 2 beers and drank mostly gatorade, but thinks he was dehydrated. After concert, he was mid conversation, he fell backwards, don't remember aura or blacking out before the fall. Maybe lasted few seconds, woke up a little confused/sleepy. Had vertigo and contusion posterior head. Was helped up by friends, was still dizzy/wobbly and then fell again, definitely hit head again on the pavement. Could have been out few seconds again. Was picked up on a chair, ice placed on head, ambulance was called. He remembers pain along left upper trapezius and lateral neck/head. In the ambulance, given IVF. Brought to [facility] in [place]. CT scan done, told to be clear . We're getting report. Nowadays, tenderness over left lateral/posterior head, pain with left lateral trapezius/shoulder, which can shoot down to upper arm/forearm. losing dexterity on left randomly, but does not think he has numbness on hand. Feels clicking left lateral neck. Vertigo, intermittently, almost always when he gets up or laying flat or sleep, could happen with light. Sensitive to light. Vertigo can happen even while standing straight, now needing a cane to prevent falls. Tried meclizine BID. Aphasia, word finding difficulty, stammers. Can text better than talking. Worse with stress. Headache left temporal but can also bilateral. History of STEMI and DVT, on Eliquis, aspirin and Plavix. History of diabetes. [facility] Medical History (Updated 01/09/24 @ 11:52 by Mita Cameron MD) Post concussion syndrome STEMI (ST elevation myocardial infarction) Elevated cholesterol DVT (deep venous thrombosis) Diabetes Anal fistula Surgical History Hx of colonoscopy Family History Father No problems noted. Mother Pancreatic cancer Mental health disorder Paternal Grandfather No problems noted. Brother Myocardial infarction Mental health disorder Sister Breast cancer Social History Housing: Apartment Alcohol intake: current Alcohol intake frequency: holidays/special occasions only Patient Tobacco Use Status: Current someday Tobacco user Tobacco use type: Cigarette Cigarette Packs Per Day: 0.5 Cigarettes Per Day: 10 Years Smoked: quit 05/05/21 e-Cigarette/Vaping Use: Never Used Second Hand Smoke Exposure: No Substance Use Type: Marijuana Current occupational status: employed Cognitive needs: No Hearing needs: No Vision needs: No Review of Systems Const All systems reviewed & are unremarkable except as noted in HPI and below Physical Exam Constitutional: Patient appears to be in no acute distress, well nourished and well developed. Patient was appropriately conversant and oriented. Good historian. MSK: Inspection reveals appropriate head and neck positioning. Indicated tenderness on bilateral upper trapezius. Cervical ROM was full. Started having vertigo with cervical extension. Spurling's sign negative. Bilateral shoulder, elbow and wrist ROM WNL. No ligamentous laxity or crepitance. No increased effusion. No specific abnormalities or instability found on inspection and palpation of the spine and extremities. Lumbar ROM was full. Strength is 5/5 in all muscle groups tested. No increased tone noted. Neurological: Neurologic examination of the upper and lower extremities was nonfocal with intact sensation, muscle stretch reflexes and without focal motor deficits . Harris?s negative bilaterally. Babinski was down going bilaterally. Clonus was negative. Gait is non-antalgic without loss of balance. We did keep the lights of to avoid vertigo during the session. Results Reviewed Results Reviewed: We called to [facility] to get CT results. I reviewed records from the following: PCP Assessment & Plan Assessment & Plan (1) Post concussion syndrome: Code(s): F07.81 - Postconcussional syndrome Category: Medical (2) Vertigo: Code(s): R42 - Dizziness and giddiness Category: Medical (3) Neck pain on left side: Code(s): M54.2 - Cervicalgia Category: Medical (4) Aphasia: Code(s): R47.01 - Aphasia Category: Medical Plan Patient is describing postconcussion symptoms including headache, vertigo, aphasia. Also shows signs of cervical strain. No signs of cervical radiculopathy on exam but included in differential because of pain going down to left arm. Waiting for CT results. Depending on results and patient's symptoms, we may or may not need further imaging. Sending him for cervical spine x-rays today. Referring him to speech/cognitive therapy for aphasia. Referring him to PT for vestibular therapy for vertigo. Advised follow up with Cardiology. Assessment and plan discussed with patient, and patient was agreeable. All questions were answered thoroughly. Follow up in 4 weeks. Can remain out of work for the next 6 weeks. Work forms completed. Mita Cameron MD, [place] Board Certified, [place] Board [employer] and Rehabilitation (ABPMR) Board Certified, [place] Board [employer] Electrodiagnostic [employer] (ABEM) Orders: Orders XR cervical spine 3V Today M54.2 - Cervicalgia PT Evaluation and Treatment Today F07.81 - Postconcussional syndrome, M54.2 - Cervicalgia, R42 - Dizziness and giddiness, R47.01 - Aphasia Referrals Speech and Hearing Referral F07.81 - Postconcussional syndrome, R47.01 - Aphasia Coding Level of Care Code New Pt Level 4 (25479) Diagnoses Post concussion syndrome F07.81 Vertigo R42 Neck pain on left side M54.2 Aphasia R47.01
== END 2024-01-09 11:57 | disposition home or self-care (01) ==
PROVIDERS: PCP Nurse Practitioner Family; Visit Provider Physical Medicine & Rehabilitation
DX: M54.2 Cervicalgia (principal); F07.81 Postconcussional syndrome; R42 Dizziness and giddiness; R47.01 Aphasia
CPT/HCPCS: 99203

== ENCOUNTER → 2024-01-11 14:30 | Outpatient (RCR) | payer BC, SELFPAY ==
[2020-04-15 14:26] VITALS: BP 143/76; PULSE 68; RESP 18; TEMP 36.8; O2SAT 95
--- NOTE | 2020-04-15 15:20 | MHC.HEMONC ---
Patient seen today for follow-up. Patient medical history updated with nurse. Provider seen patient. Follow-up booked.
--- NOTE | 2020-04-15 15:44 | PM.HEMONCPN ---
Medical Summary - Medical Summary Date of Service: 04/15/20 Chief complaint: Follow-up Medical Summary: Diagnosis: Right lower extremity DVT March 2019 No inciting risk factors such as immobilization, trauma, surgery or travel. He is a chronic smoker and had gained weight in the recent months. Presented to ED with 5 days of pain and swelling of right leg. Doppler revealed occlusive thrombus in popliteal, peroneal and posterior tibial veins in the right lower extremity. D-dimer in September 2019 less than 200. Interval History Interval history: Patient is here in follow-up. He is doing quite well but reports occasional feeling of discomfort behind his right calf. He feels better when he wears compression stocking. He denies any pleuritic chest pain, shortness of breath or cough. He is working full-time. Unfortunately he continues to smoke a half pack a day. He had quit earlier for 11 years but resumed 4 years ago. He feels rather anxious about stopping anticoagulation and risk getting another clot. He denies any significant bruising or bleeding. Review of Systems - Cardiovascular Reports no additional cardiovascular complaints - Respiratory Reports no additional respiratory complaints [facility] Medical History: Medical History (Last Updated 04/15/20 @ 14:38 by Rosina Martinez RN) Anal fistula Diabetes DVT (deep venous thrombosis) Family History: Family History (Last Reviewed 02/18/20 @ 16:56 by KATERYNA Acuña[facility]) Father No problems noted. Mother Pancreatic cancer Paternal Grandfather No problems noted. Brother Myocardial infarction Sister Breast cancer Oncology Screenings - ECOG Performance Status ECOG Performance Status: 0 Home Medications and Allergies Home Medications Medication Instructions Recorded Confirmed Type apixaban 5 mg tablet 5 mg PO BID 02/18/20 02/18/20 History atorvastatin 10 mg tablet 10 mg PO DAILY 02/18/20 02/18/20 History empagliflozin 10 mg tablet 10 mg PO DAILY 02/18/20 02/18/20 History Allergies Allergy/AdvReac Type Severity Reaction Status Date / Time amoxicillin [Amoxicillin] Allergy Unknown UNKNOWN Verified 04/15/20 14:39 azithromycin [Azithromycin] Allergy Unknown UNKNOWN Unverified 01/23/20 14:55 erythromycin base Allergy Unknown Verified 02/17/20 08:52 Environmental Allergy Unknown RUNNY NOSE Uncoded 01/23/20 14:55 Exam Vital signs: Vital Signs Temp 98.2 F 04/15/20 14:26 Pulse 68 04/15/20 14:26 Resp 18 04/15/20 14:26 BP 143/76 H 04/15/20 14:26 Pulse Ox 95 04/15/20 14:26 Intake & Output 04/14/20 04/15/20 04/15/20 18:59 06:59 18:59 Other: Weight 85.1 kg Weight 85.1 kg - Constitutional Present: no acute distress - Routine HEENT Exam Head: Present: normal inspection Eye: Present: EOMI - Routine Neck Exam Absent: lymphadenopathy - Routine Respiratory Exam Absent: respiratory distress - Routine Cardiovascular Exam Cardiovascular: Present: S1, S2 Progress Note: A/P (1) DVT (deep venous thrombosis) Status: Chronic Assessment and plan: 1. This is a 54-year-old male diagnosed with right lower extremity DVT in March 2018. He has been on Eliquis since then. Risk factors are obesity, smoking and family history of DVT. Thrombophilia workup including lupus anticoagulant test performed October 2019 was negative. Repeat Doppler in October revealed improvement but presence of residual clot. He gets occasional symptoms of right calf discomfort. I have encouraged him to continue wearing compression socks. Leg elevation whenever possible. He was advised about smoking cessation. He has a high level of anxiety about recurrent clot. For now he will continue on apixaban 5 mg b.i.d.. He was advised about monitoring himself for bruising or bleeding. Follow-up in 6 months. - Time Spent With Patient Total time spent is greater than 50% in coordination of care (as documented) at patient's floor/unit and/or counseling patient: 15 - 24 minutes
--- NOTE | 2020-07-01 12:46 | MHC.HEMONC ---
pt called. He has jannie horse in right calf. Has h/o right lower DVT and is on Eloquis. I spoke to Dr Elizabeth and she said for him to monitor and not worry at this point. He was told to call with worsening sx or swelling or redness in leg.
[2020-10-23 15:44] VITALS: BP 152/75; PULSE 77; RESP 18; TEMP 536.6; TEMP 998; O2SAT 96; BMI 29.0
--- NOTE | 2020-10-23 15:44 | P.PNHO_ITS ---
Medical Summary - Medical Summary Date of Service: 10/23/20 Chief complaint: Follow-up Medical Summary: Diagnosis: Right lower extremity DVT March 2019 No inciting risk factors such as immobilization, trauma, surgery or travel. He is a chronic smoker and had gained weight in the recent months. Presented to ED with 5 days of pain and swelling of right leg. Doppler revealed occlusive thrombus in popliteal, peroneal and posterior tibial veins in the right lower extremity. D-dimer in September 2019 less than 200. Interval History Interval history: Patient is here in follow-up. He is doing well overall. He no longer has sw elling in his right leg. No other complaints such as cough or pleuritic chest pain. His received both doses of COVID-19 vaccination. He is taking Eliquis twice daily and reports nose side effects such as easy skin bruising or mucosal bleeding. Review of Systems - Constitutional Reports as per HPI, Reports no additional constitutional complaints - Cardiovascular Reports no additional cardiovascular complaints - Respiratory Reports no additional respiratory complaints - Gastrointestinal Reports no additional gastrointestinal complaints [facility] Medical History: Medical History (Last Reviewed 05/26/20 @ 11:54 by DEQUAN Acuña) Anal fistula Diabetes DVT (deep venous thrombosis) Family History: Family History (Last Reviewed 05/26/20 @ 11:54 by DEQUAN Acuña) Father No problems noted. Mother Pancreatic cancer Paternal Grandfather No problems noted. Brother Myocardial infarction Sister Breast cancer Social History: Social History (Last Reviewed 05/26/20 @ 11:54 by DEQUAN Acuña) Alcohol History: Alcohol intake: current Alcohol History Details: Alcohol intake frequency: a few times a week Home Medications and Allergies Allergies Allergy/AdvReac Type Severity Reaction Status Date / Time amoxicillin [Amoxicillin] Allergy Unknown UNKNOWN Verified 05/26/20 13:00 erythromycin base Allergy Unknown Unknown Verified 05/26/20 13:00 Environmental Allergy Unknown RUNNY NOSE Uncoded 05/26/20 13:00 Exam Vital signs: Vital Signs Temp 98.2 F 04/15/20 14:26 Pulse 68 04/15/20 14:26 Resp 18 04/15/20 14:26 BP 143/76 H 04/15/20 14:26 Pulse Ox 95 04/15/20 14:26 Weight 85.1 kg - Constitutional Present: no acute distress - Routine HEENT Exam Head: Present: normal inspection - Routine Neck Exam Absent: lymphadenopathy - Routine Respiratory Exam Absent: respiratory distress - Routine Cardiovascular Exam Cardiovascular: Present: S1, S2 Data - Labs CBC & Chem 7: 10/23/20 15:51 10/23/20 15:51 Progress Note: A/P (1) DVT (deep venous thrombosis) Status: Chronic Assessment and plan: 1. This is a 55-year-old male diagnosed with right lower extremity DVT in March 2018. He has been on Eliquis since then. Risk factors are obesity, smoking and family history of DVT. Thrombophilia workup including lupus anticoagulant test performed October 2019 was negative. Repeat Doppler in October revealed improvement but presence of residual clot. He was again advised about smoking cessation. He is going to ask his PCP about Chantix. He will continue on apixaban 5 mg b.i.d.. Follow-up in 6 months. - Time Spent With Patient 15 - 24 minutes
[2020-10-23 15:53] LABS: MANUAL DIFF FLAG NO
[2020-10-23 15:57] LABS: Basophils Percent Auto 0.4 % (0-2); Eosinophils Absolute Auto 0.1 X10*3/uL (0.0-0.4); Eosinophils Percent Auto 0.7 % (0-4); Hematocrit 50.2 % (42-52); Hemoglobin 16.9 g/dl (14.0-18.0); Imm Gran Abs Auto 0.02 X10*3/uL (0.00-0.03); Imm Gran Pct Auto 0.3 % (0.0-0.4); Lymphocytes Absolute Auto 1.8 X10*3/uL (1.2-4.9); Lymphocytes Percent Auto 25.8 % (20-40); Mean Corpuscular HGB Conc 33.7 g/dl (31.0-36.0); Mean Corpuscular Hemoglobin 29.4 pg (27.0-33.0); Mean Corpuscular Volume 87.5 fL (80-98); Mean Platelet Volume 8.7 fL (9.4-12.4); Monocytes Absolute Auto 0.5 X10*3/uL (0.1-1.2); Monocytes Percent Auto 7.5 % (2-11); Neutrophils Absolute Auto 4.5 X10*3/uL (2.0-8.3); Neutrophils Percent Auto 65.3 % (45-73); Platelet Count 143 X10*3/uL (160-400); Red Blood Count 5.74 X10*6/uL (4.60-5.80); Red Cell Distribution Width 12.9 % (11.0-16.0); White Blood Count 6.9 X10*3/uL (4.8-10.8)
--- NOTE | 2020-10-23 15:57 | MHC.HEMONC ---
Pt here for Hem follow up with Dr Elizabeth. Labs drawn by [facility] tender cloth and sent to lab. Clinical summary updated by nurse. Pt states he had a dizzy spell about a week ago. States he drinks plenty of water. Dr Elizabeth notified. Provider into see pt. Follow up appointment scheduled and given to pt. Discharged home.
[2020-10-23 16:25] LABS: Alanine Aminotransferase 27 U/L (0-40); Albumin Level 4.6 g/dL (3.5-5.0); Alkaline Phosphatase 72 U/L (39-117); Anion Gap 15 (12-20); Aspartate Amino Transferase 19 U/L (5-37); Blood Urea Nitrogen 16 mg/dL (9-16); Calcium 9.3 mg/dL (8.4-10.2); Carbon Dioxide 24 mmol/L (22-29); Chloride 104 mmol/L (96-108); Creatinine Clr Calc Pharmacy 102.9; Estimated Glomerular Filt Rate > 60; Glucose Random 212 mg/dL (60-115); Sodium 139 mmol/L (135-145); Total Protein 6.9 g/dL (6.5-8.0)
== END | disposition home or self-care (01) ==
LOC: HO.ONC 04-15 14:08
PROVIDERS: PCP Nurse Practitioner Family; Visit Provider Internal Medicine
DX: I82.401 Acute embolism and thrombosis of unspecified deep veins of right lower extremity (principal); E66.9 Obesity, unspecified; F17.200 Nicotine dependence, unspecified, uncomplicated; Z79.01 Long term (current) use of anticoagulants; Z71.6 Tobacco abuse counseling
CPT/HCPCS: 36415; 80053; 85025; 99214

== ENCOUNTER 2024-01-23 15:43 | Outpatient (AMB) | payer BC, SELFPAY ==
--- NOTE | 2024-01-23 15:44 | MHC.PC.OV ---
Vital Signs 01/23/24 15:46 Height 5 ft 7 in Weight 192 lb 6 oz BMI 30.1 BP 120/74 Blood Pressure Location Lt brachial Position Sitting Pulse 68 Pulse Source Pulse Oximeter Pulse Oximetry (%) 97 Oxygen Delivery Method Room Air Intake Visit Reasons: 3 wk f/u - concussion Intake Note: Patient here for concussion f/u. Allergies amoxicillin [Amoxicillin] Allergy (Unknown, Verified 01/23/24 15:46) UNKNOWN erythromycin base Allergy (Unknown, Verified 01/23/24 15:46) Unknown Environmental Allergy (Unknown, Uncoded 01/23/24 15:46) RUNNY NOSE Tobacco use date assessed: 12/12/23 Dental Screening Dental Screen Date: 01/03/24 HPI 3 wk f/u - concussion HPI Details Pt presents for follow up of a concussion. This occurred when pt fell twice and hit his head on 12/07, before a concert. Pt recently saw physiatry. He had a cervical spine XR which showed degenerative changes but no fracture. Pt was referred to speech/cognitive therapy due to aphasia. He was also referred to PT (vestibular rehab) for vertigo. Pt reports that his symptoms are improving somewhat. He does report ongoing photophobia and dizziness. He also reports pressure to his left parietal region. He notices less aphasia. Will order MRI. Denies sonophobia, blurred vision, and N/V. #2 apprx 4 days ago pt noticed swelling of his left upper eyelid, faintly red, not tender with touch, with minimal discharge. He reports, today, the swelling is still present but better than the past few days. [facility] Medical History (Updated 01/23/24 @ 17:13 by Aj Esteban [facility]) Post concussion syndrome STEMI (ST elevation myocardial infarction) Elevated cholesterol DVT (deep venous thrombosis) Diabetes Anal fistula Surgical History Hx of colonoscopy Family History Father No problems noted. Mother Pancreatic cancer Mental health disorder Paternal Grandfather No problems noted. Brother Myocardial infarction Mental health disorder Sister Breast cancer Social History Housing: Apartment Alcohol intake: current Alcohol intake frequency: holidays/special occasions only Patient Tobacco Use Status: Current someday Tobacco user Tobacco use type: Cigarette Cigarette Packs Per Day: 0.5 Cigarettes Per Day: 10 Years Smoked: quit 05/05/21 e-Cigarette/Vaping Use: Never Used Second Hand Smoke Exposure: No Substance Use Type: Marijuana Current occupational status: employed Cognitive needs: No Hearing needs: No Vision needs: No Questionnaire PHQ-9 Over the last 2 weeks, how often have you been bothered by any of the following problems? 4. Feeling tired or having little energy: several days 5. Poor appetite or overeating: not at all 8. Moving or speaking so slowly that other people could have noticed. Or the opposite - being so fidgety or restless that you have been moving around a lot more than usual: several days 9. Thoughts that you would be better off or of hurting yourself in some way: not at all Source: Developed by Drs. Héctor Mccullough, Mattie Tellez, Jose Tamez and colleagues, with an educational endy from [employer]. Thrive Questionnaire Date Thrive assessed: 12/27/23 I am a: Patient What is your living situation today?: I have a steady place to live Within the past 12 months, did the food you bought not last and you didn't have the money to get more?: I choose not to answer this question Within the past 12 months, did you worry whether your food would run out before you got money to buy more?: I choose not to answer this question Do you have trouble paying for medicines?: I choose not to answer this question Do you have trouble getting transportation to medical appointments?: I choose not to answer this question Do you have trouble paying your heating and electricity bill?: I choose not to answer this question Do you have trouble taking care of your child, family member or friend?: No Do you have trouble with day-to-day activities such as bathing, preparing meals, shopping, managing finances, etc.?: I choose not to answer this question Are you currently unemployed and looking for a job?: No Are you interested in more education?: Yes Please select the resources that you would like help with: Education Currently or been in a relationship where the following occur: No concerns reported THRIVE Score: 0 AUDIT C Alcohol Use Questionnaire (AUDIT-C) 1. How often do you have a drink containing alcohol?: Monthly or less 2. How many drinks containing alcohol do you have on a typical day when you are drinking?: 1 or 2 3. How often do you have six or more drinks on one occasion?: Never Total Score: 1 LORE-7 AMB Questionnaire LORE-7 Date LORE - 7 assessed: 12/12/23 Feeling nervous, anxious, or on edge: 1 = Several days Not being able to stop or control worryin = Not at all Worrying too much about different things: 0 = Not at all Trouble relaxin = Several days Being so restless that it is hard to sit still: 0 = Not at all Becoming easily annoyed or irritable: 0 = Not at all Feeling afraid as if something awful might happen: 0 = Not at all Total LORE-7 score (0-4 normal; 5-9 mild; 10-14 moderate; 15-21 severe): 2 Source: Developed by Drs. Héctor Mccullough, Mattie Tellez, Jose Tamez and colleagues, with an educational endy from [employer]. Review of Systems Const Reports as per HPI Neuro Denies Abnormal speech present Physical exam (Primary Care) Vital Signs: Last Vital Signs Pulse 68 01/23/24 15:46 BP 120/74 01/23/24 15:46 Pulse Ox 97 01/23/24 15:46 Oxygen Delivery Method Room Air 01/23/24 15:46 BMI result Body Mass Index 30.1 Tobacco/Smoking Status: Tobacco use Status Tobacco use date assessed 12/12/23 01/23/24 15:49 Patient Tobacco Use Status Current someday Tobacco 01/23/24 15:49 Tobacco use type Cigarette 01/23/24 15:49 e-Cigarette/Vaping Use Never Used 01/23/24 15:49 Thrive Assessment: Date of Thrive Assessment Date Thrive assessed 12/27/23 01/23/24 15:49 Currently or been in a relationship where the following occur: No concerns reported Const General: cooperative Orientation/consciousness: patient oriented x3 Eyes Other: no scleral erythema noted to left eye. left upper lid with faint swelling and faint erythema. no tenderness with touch, no surrounding orbital erythema noted Resp Effort & Inspection: normal respiratory effort Auscultation: clear to auscultation bilaterally Cardio Rate: regular rate Rhythm: regular rhythm Heart sounds: S1 normal heart sound present and S2 normal heart sound present Neuro General: patient oriented x3 Cranial nerves: Yes CN's II-XII intact bilaterally and Yes Midline tongue present Speech: No Abnormal speech present, No Expressive aphasia present, No Receptive aphasia present and No Global aphasia present Gait exam (Neuro): Normal gait present Psych Appearance: grossly normal Mental Status: mental status grossly normal Speech and movement: Normal speech and movement present Affect: normal affect Attitude: cooperative Thought process: Normal thought process present Thought content: Normal thought content present Insight: Good insight present (Psych) Judgement: Good judgement present (Psych) Assessment and Plan Assessment & Plan (1) Post concussion syndrome: Code(s): F07.81 - Postconcussional syndrome Plan: Symptoms are improving somewhat, MRI ordered (2) Vertigo: Code(s): R42 - Dizziness and giddiness Plan: Symptoms are improving somewhat, MRI ordered, going to PT (3) Head trauma: Code(s): S09.90XA - Unspecified injury of head, initial encounter Plan: Symptoms are improving somewhat, MRI ordered (4) Aphasia: Code(s): R47.01 - Aphasia Plan: Symptoms are improving somewhat, MRI ordered, has been referred to speech/cognitive therapy (5) Head trauma: Code(s): S09.90XA - Unspecified injury of head, initial encounter (6) Blepharitis: Code(s): H01.009 - Unspecified blepharitis unspecified eye, unspecified eyelid Plan: cont to use warm moist compresses to left upper eyelid. Any worsening symptoms to seek emergency treatment Plan The patient agreed to the use of a ophthalmic medical technician for this encounter. Scribed for KATERYNA Worthy-VENICE by Nadira Lin ophthalmic medical technician, on 01/23/2024 at 16:00 EST. Orders: Orders MR head/brain wo con Today F07.81 - Postconcussional syndrome, R42 - Dizziness and giddiness, R47.01 - Aphasia, S09.90XA - Unspecified injury of head, initial encounter Coding Level of Care Code Est Pt Level 3 (60407) Diagnoses Post concussion syndrome F07.81 Vertigo R42 Head trauma S09.90XA Aphasia R47.01 Blepharitis H01.009
[2024-01-23 15:46] VITALS: BP 120/74; PULSE 68; O2SAT 97; BMI 30.1
== END 2024-01-23 16:47 | disposition home or self-care (01) ==
PROVIDERS: PCP Nurse Practitioner Family; Visit Provider Nurse Practitioner Family
DX: R42 Dizziness and giddiness (principal); F07.81 Postconcussional syndrome; S09.90XA Unspecified injury of head, initial encounter; R47.01 Aphasia; H01.009 Unspecified blepharitis unspecified eye, unspecified eyelid

== ENCOUNTER → 2024-01-23 15:43 | Outpatient (BNVA) | payer BC, SELFPAY | PROVIDERS: PCP Nurse Practitioner Family; Visit Provider Nurse Practitioner Family | DX: F07.81 Postconcussional syndrome (principal); R42 Dizziness and giddiness; S09.90XA Unspecified injury of head, initial encounter; R47.01 Aphasia; H01.009 Unspecified blepharitis unspecified eye, unspecified eyelid; X58.XXXA Exposure to other specified factors, initial encounter; Y93.9 Activity, unspecified; Y92.9 Unspecified place or not applicable; Y99.9 Unspecified external cause status ==

== ENCOUNTER 2024-02-08 10:53 | Outpatient (AMB) | payer BC, SELFPAY ==
--- NOTE | 2024-02-08 10:54 | MHC.OFFVIS ---
Vital Signs 02/08/24 10:55 Height 5 ft 7 in Weight 192 lb 6 oz BMI 30.1 Intake Visit Reasons: OV Heavy neck pain, left side/possible concussion Intake Note: Aj is a 58 year old male who presents to the office today for a new patient visit for heavy neck pain, left side/possible concussion. Patient reports he had to reschedule his initial PT evaluation. He also states he has not seen [facility] because they are booking ou in April. He feels he is doing better and will reach out if he feels he needs to see them. Patient also reports left sided neck stiffness when waking up as well as sensation on the left side of the back of his head. Patient is also concerned for redness on his left eyelid that began a few weeks ago. He thinks this is coming from the weird spot he has on his head. He states his PCP looked at it and confirmed is not pink eye or a stye. Allergies amoxicillin [Amoxicillin] Allergy (Unknown, Verified 02/08/24 10:55) UNKNOWN erythromycin base Allergy (Unknown, Verified 02/08/24 10:55) Unknown Environmental Allergy (Unknown, Uncoded 02/08/24 10:55) RUNNY NOSE Medication List - Last Reconciled 02/08/24 by Mita Cameron MD aspirin 81 mg PO DAILY cholecalciferol (vitamin D3) (Vitamin D3) 25 mcg PO DAILY clopidogrel 75 mg PO DAILY empagliflozin (Jardiance) 25 mg PO QAM lancets (FreeStyle Lancets) As directed losartan 25 mg PO DAILY meclizine 25 mg PO BID PRN 14 days metoprolol succinate ER 25 mg PO DAILY nicotine (polacrilex) (Nicorette) 2 mg buccal Q4-8H PRN psxwa-1m-zbu-epa-fish oil 300-1,000 mg ([place]-3 Fish Oil) 1 cap PO DAILY rosuvastatin 40 mg PO DAILY vitamin B complex 1 cap PO DAILY HPI Comments Details: Was on his way to [place] on 12/08/23, while in the concert parking lot. He did not take drugs. He had 2 beers and drank mostly gatorade, but thinks he was dehydrated. ert, Did not make it inside the concert, while outside in the parking lot, mid conversation, he fell backwards, don't remember aura or blacking out before the fall. Maybe lasted few seconds, woke up a little confused/sleepy. Had vertigo and contusion posterior head. Was helped up by friends, was still dizzy/wobbly and then fell again, definitely hit head again on the pavement. Could have been out few seconds again. Was picked up on a chair, ice placed on head, ambulance was called. He remembers pain along left upper trapezius and lateral neck/head. In the ambulance, given IVF. Brought to [facility] in [place]. CT scan done, told to be clear . We're getting report. Nowadays, tenderness over left lateral/posterior head, pain with left lateral trapezius/shoulder, which can shoot down to upper arm/forearm. losing dexterity on left randomly, but does not think he has numbness on hand. Feels clicking left lateral neck. Vertigo, intermittently, almost always when he gets up or laying flat or sleep, could happen with light. Sensitive to light. Vertigo can happen even while standing straight, now needing a cane to prevent falls. Tried meclizine BID. Aphasia, word finding difficulty, stammers. Can text better than talking. Worse with stress. Headache left temporal but can also bilateral. History of STEMI and DVT, on Eliquis, aspirin and Plavix. History of diabetes. Reviewed notes from [facility]. CT head/neck reported no acute intracranial abnormality and no acute fractures. Update from last visit: Word-finding is much better. Noticeable only when he is exhausted. Continues to have left-sided headache, going into temporalis and neck. He has some form of inflammation on left eyelid which he thinks might be related. Already seen by PCP for this. The headache is worse when he is waking up in the morning. He has light sensitivity. Continues to have episodes of dizziness, usually with position changes. Overall improved since last time I saw him. Episodes are much less frequent. He had seen his supervisor in charge. MRI brain has been ordered. He is also getting a heart monitor. He has not been able to start physical therapy or speech therapy. I believe the rehab department is booking out far, but it is also cost prohibitive for the patient. Currently on short-term disability. I filled up the forearm previously. Plan to go back to work without restrictions 02/21/2024. [facility] Medical History (Updated 02/08/24 @ 11:29 by Mita Cameron MD) Post concussion syndrome STEMI (ST elevation myocardial infarction) Elevated cholesterol DVT (deep venous thrombosis) Diabetes Anal fistula Surgical History Hx of colonoscopy Family History Father No problems noted. Mother Pancreatic cancer Mental health disorder Paternal Grandfather No problems noted. Brother Myocardial infarction Mental health disorder Sister Breast cancer Social History Housing: Apartment Alcohol intake: current Alcohol intake frequency: holidays/special occasions only Patient Tobacco Use Status: Current someday Tobacco user Tobacco use type: Cigarette Cigarette Packs Per Day: 0.5 Cigarettes Per Day: 10 Years Smoked: quit 05/05/21 e-Cigarette/Vaping Use: Never Used Second Hand Smoke Exposure: No Substance Use Type: Marijuana Current occupational status: employed Cognitive needs: No Hearing needs: No Vision needs: No Physical Exam Vital Signs: BMI result Body Mass Index 30.1 Constitutional: Patient appears to be in no acute distress, well nourished and well developed. Patient was appropriately conversant and oriented. Good historian. MSK: Inspection reveals appropriate head and neck positioning. Cervical ROM was full. Spurling's sign negative. Bilateral shoulder, elbow and wrist ROM WNL. No ligamentous laxity or crepitance. No increased effusion. No specific abnormalities or instability found on inspection and palpation of the spine and extremities. Lumbar ROM was full. Strength is 5/5 in all muscle groups tested. No increased tone noted. Neurological: Neurologic examination of the upper and lower extremities was nonfocal with intact sensation, muscle stretch reflexes and without focal motor deficits . Harris?s negative bilaterally. Babinski was down going bilaterally. Clonus was negative. Gait is non-antalgic without loss of balance. Results Reviewed Results Reviewed: Ordering Physician: Mita Roblero Date of Service: 01/09/24 Procedure(s): XR cervical spine 3V Accession Number(s): [id number] cc: Aj Esteban-BC; Mita Roblero~ EXAMINATION: XR CERVICAL SPINE CLINICAL INFORMATION: Patient fell. Pain COMPARISON: None available. TECHNIQUE: 3 views of the cervical spine were obtained. FINDINGS: Prevertebral soft tissues are normal. There is moderate disc space narrowing see C4, and C4-5 anterior posterior spurring no fracture or destructive process. Incidental note is made of calcifications overlying the right left common carotid bulbs. The lateral masses of C1 and odontoid are intact. XR/XR cervical spine 3V IMPRESSION: Degenerative changes noted but no fracture as questioned. Electronically signed by: Murali Negron MD 01/09/2024 03:46 PM EDT RP Assessment & Plan Assessment & Plan (1) Cervicogenic headache: Code(s): G44.86 - Cervicogenic headache Category: Medical (2) Post concussion syndrome: Code(s): F07.81 - Postconcussional syndrome Category: Medical (3) Blepharitis: Code(s): H01.009 - Unspecified blepharitis unspecified eye, unspecified eyelid Category: Medical Qualifiers: Blepharitis type: unspecified type Eyelid: upper Laterality: left Qualified Code(s): H01.004 - Unspecified blepharitis left upper eyelid Plan As long as MRI brain is clear, suspect his symptoms are cervicogenic. Discussed that cervicogenic syndrome can have a range of symptoms including headache, neck pain, vertigo, visual and auditory symptoms. It can come after acceleration/deceleration accidents like head trauma or falls. If he has to choose between speech versus vestibular therapy, I would recommend starting vestibular therapy 1st. He is still having vertigo symptoms. But word-finding difficulties are much improved. Plan is to return to work without restrictions 02/21/2024. We will re-evaluate after he goes back to work. Short-term disability forms were filled up last week and I suspect they will send me new forms to fill up this week. Assessment and plan discussed with patient, and patient was agreeable. All questions were answered thoroughly. Follow up in 3 months or call sooner if needed. Total of 45 minutes spent today including chart review, results review, history taking, physical examination, discussion of assessment and plan, and coordination of care. [ ] Mita Cameron MD, [place] Board Certified, [place] Board [employer] and Rehabilitation (ABPMR) Board Certified, [place] Board [employer] Electrodiagnostic Medicine (ABEM) Coding Level of Care Code Est Pt Level 4 (14298) Diagnoses Cervicogenic headache G44.86 Post concussion syndrome F07.81 Blepharitis of left upper eyelid, unspecified type H01.004 Blepharitis type: unspecified type Eyelid: upper Laterality: left
[2024-02-08 10:55] VITALS: BMI 30.1
== END 2024-02-08 11:23 | disposition home or self-care (01) ==
PROVIDERS: PCP Nurse Practitioner Family; Visit Provider Physical Medicine & Rehabilitation
DX: G44.86 Cervicogenic headache (principal); F07.81 Postconcussional syndrome; H01.004 Unspecified blepharitis left upper eyelid
CPT/HCPCS: 99214

== ENCOUNTER → 2024-02-08 10:53 | Outpatient (BNVA) | payer BC, SELFPAY | PROVIDERS: PCP Nurse Practitioner Family; Visit Provider Physical Medicine & Rehabilitation ==

== ENCOUNTER 2024-02-11 18:29 | Outpatient (REF) | payer BC, SELFPAY ==
--- NOTE | ~2024-02-11 | MR_ITS ---
EXAMINATION: MR BRAIN WITHOUT CONTRAST CLINICAL INFORMATION: Aphasia COMPARISON: None available. TECHNIQUE: MRI of the brain was obtained using routine sequences without contrast. FINDINGS: No acute intracranial hemorrhage or infarct. No edema, midline shift or hydrocephalus. No acute extra-axial fluid collections. The osseous structures are unremarkable. The pituitary gland, pineal gland and remaining midline structures are unremarkable. No orbital pathology. Mild mucosal thickening of the paranasal sinuses, worse in the left maxillary sinus. The mastoid air cells are clear. MR/MR head/brain wo con IMPRESSION: No acute intracranial abnormality. Electronically signed by: Narcisa Becker MD 02/27/2024 01:37 PM EDT
== END 2024-02-11 18:30 | disposition home or self-care (01) ==
LOC: HO.MRI 18:29
PROVIDERS: PCP Nurse Practitioner Family; Visit Provider Nurse Practitioner Family
DX: R47.01 Aphasia (principal); R42 Dizziness and giddiness; F07.81 Postconcussional syndrome; S09.90XA Unspecified injury of head, initial encounter
CPT/HCPCS: 70551

== ENCOUNTER 2024-02-13 08:49 | Outpatient (AMB) | payer BC, SELFPAY ==
--- NOTE | 2024-02-13 08:50 | A.OFFPC_ITS ---
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 Patient is currently seeing a waste management specialist. Recently, physical therapy was ordered for his vertigo and chronic neck pain. According to physiatry his last no, his aphasia is getting a little bit better. MRI of hea d/brain was performed but results are not back yet. Today, pt reports his speech is getting better, reports he will probably not attend any speech therapy. He does report residual dizziness, at night when i'm lying down . He reports some discomfort pointing to his lateral left skull, radiating to left occipital region. He reports the photophobia is getting much better. 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 Pt denies any N/V, blurred vision spells, fevers/chills. Pt reports a 2/3 out of 10 for symptoms, vs last week was more 6/7 out of 10. He does report intermittent tinnitus, not as bad as previous. Looking as screens for some time, can create some vertigo/dizziness with tired eyes . Pt is looking to go back to work on 02/20, with a reduced schedule, and no lifting over 20lbs. [facility] Medical History (Updated 02/08/24 @ 11:29 by Mita Cameron MD) Post concussion syndrome STEMI (ST elevation myocardial infarction) Elevated cholesterol DVT (deep venous thrombosis) Diabetes Anal fistula Surgical History Hx of colonoscopy Family History Father No problems noted. Mother Pancreatic cancer Mental health disorder Paternal Grandfather No problems noted. Brother Myocardial infarction Mental health disorder Sister Breast cancer Social History Housing: Apartment Alcohol intake: current Alcohol intake frequency: holidays/special occasions only Patient Tobacco Use Status: Current someday Tobacco user Tobacco use type: Cigarette Cigarette Packs Per Day: 0.5 Cigarettes Per Day: 10 Years Smoked: quit 05/05/21 e-Cigarette/Vaping Use: Never Used Second Hand Smoke Exposure: No Substance Use Type: Marijuana Current occupational status: employed Cognitive needs: No Hearing needs: No Vision needs: No Questionnaire Thrive Questionnaire Date Thrive assessed: 02/13/24 I am a: Patient What is your living situation today?: I have a steady place to live Within the past 12 months, did the food you bought not last and you didn't have the money to get more?: I choose not to answer this question Within the past 12 months, did you worry whether your food would run out before you got money to buy more?: I choose not to answer this question Do you have trouble paying for medicines?: I choose not to answer this question Do you have trouble getting transportation to medical appointments?: I choose not to answer this question Do you have trouble paying your heating and electricity bill?: I choose not to answer this question Do you have trouble taking care of your child, family member or friend?: No Do you have trouble with day-to-day activities such as bathing, preparing meals, shopping, managing finances, etc.?: I choose not to answer this question Are you currently unemployed and looking for a job?: No Are you interested in more education?: Yes Please select the resources that you would like help with: Education Currently or been in a relationship where the following occur: No concerns reported THRIVE Score: 0 LORE-7 AMB Questionnaire LORE-7 Date LORE - 7 assessed: 12/12/23 Source: Developed by Drs. Héctor Mccullough, Mattie Tellez, Jose Tamez and colleagues, with an educational endy from [employer]. Physical exam (Primary Care) Tobacco/Smoking Status: Tobacco use Status Tobacco use date assessed 12/12/23 02/13/24 08:50 Patient Tobacco Use Status Current someday Tobacco 02/13/24 08:50 Tobacco use type Cigarette 02/13/24 08:50 e-Cigarette/Vaping Use Never Used 02/13/24 08:50 Thrive Assessment: Date of Thrive Assessment Date Thrive assessed 12/27/23 02/13/24 08:50 Currently or been in a relationship where the following occur: No concerns reported Const General: cooperative, healthy appearing, comfortable, no acute distress and well developed Orientation/consciousness: patient oriented x3 HENMT Ears: hearing grossly normal bilaterally Eyes General: appearance normal, both eyes and all related structures Neck Neck: Yes full ROM Resp Effort & Inspection: normal respiratory effort Auscultation: clear to auscultation bilaterally Cardio Rate: regular rate Rhythm: regular rhythm Heart sounds: S1 normal heart sound present, S2 normal heart sound present and Murmur heart sound present systolic (faint) Neuro Other: finger to thumb intact bilat General: patient oriented x3 Cranial nerves: Yes CN's II-XII intact bilaterally Cognition (Neuro): normal cognition Gait exam (Neuro): Normal gait present Motor exam (neuro): 5/5 motor strength present throughout Coordination: [id number] test normal, crxj-zw-ajwu test normal, tandem gait normal and Romberg test negative Romberg Test: Negative Coding Level of Care Code Est Pt Level 4 (78832) Diagnoses Head trauma S09.90XA Aphasia R47.01 Post concussion syndrome F07.81 Fall W19.XXXA Assessment & Plan Assessment & Plan (1) Head trauma: Code(s): S09.90XA - Unspecified injury of head, initial encounter Category: Medical Plan: continue follow up with physiatry (2) Aphasia: Code(s): R47.01 - Aphasia Category: Medical Plan: does not feel speech is necessary (3) Post concussion syndrome: Code(s): F07.81 - Postconcussional syndrome Category: Medical Plan: cont to follow up with physiatry (4) Fall: Code(s): W19.XXXA - Unspecified fall, initial encounter Category: Medical Plan: follow up with physiatry, keep me posted after starting work again
[2024-02-13 08:51] VITALS: BP 120/72; PULSE 70; O2SAT 98; BMI 31.0
== END 2024-02-13 15:26 | disposition home or self-care (01) ==
PROVIDERS: PCP Nurse Practitioner Family; Visit Provider Nurse Practitioner Family
DX: S09.90XA Unspecified injury of head, initial encounter (principal); R47.01 Aphasia; F07.81 Postconcussional syndrome; W19.XXXA Unspecified fall, initial encounter

== ENCOUNTER → 2024-02-13 08:49 | Outpatient (BNVA) | payer BC, SELFPAY | PROVIDERS: PCP Nurse Practitioner Family; Visit Provider Nurse Practitioner Family ==

== ENCOUNTER 2024-03-14 15:16 | Outpatient (AMB) | payer BC, SELFPAY ==
[2024-03-14 15:20] VITALS: BP 140/82; BMI 30.5
--- NOTE | 2024-03-14 15:20 | A.OFFPC_ITS ---
Vital Signs 03/14/24 15:20 Height 5 ft 7 in Weight 195 lb BMI 30.5 BP 140/82 H Blood Pressure Location Lt brachial Position Sitting Intake Visit Reasons: 1 mon f/up Allergies amoxicillin [Amoxicillin] Allergy (Unknown, Verified 02/13/24 08:52) UNKNOWN erythromycin base Allergy (Unknown, Verified 02/13/24 08:52) Unknown Environmental Allergy (Unknown, Uncoded 02/08/24 10:55) RUNNY NOSE Tobacco use date assessed: 12/12/23 Dental Screening Dental Screen Date: 01/03/24 HPI HPI Comments History of Present Illness Details 58 y/o male patient who presents to the clinic for 1 month f/u. Pt suffered a Concussion back in 12/2023 after 2 falls. He had an MRI that was unremarkable. PCP referred him for PT due to Vertigo and currently taking Meclizine. Reports good relief and waiting to start PT. Denies Light sensitivity. Denies headaches, nausea or vomiting. He has returned to work Fu lltime with no problems. COUNTS INCLUDE 234 BEDS AT THE [facility] Medical History (Updated 03/14/24 @ 17:38 by Ernestine Rondon NP) Hypertensive retinopathy of both eyes Post concussion syndrome STEMI (ST elevation myocardial infarction) Elevated cholesterol DVT (deep venous thrombosis) Diabetes Anal fistula Surgical History Hx of colonoscopy Family History Father No problems noted. Mother Pancreatic cancer Mental health disorder Paternal Grandfather No problems noted. Brother Myocardial infarction Mental health disorder Sister Breast cancer Social History Housing: Apartment Alcohol intake: current Alcohol intake frequency: holidays/special occasions only Patient Tobacco Use Status: Current someday Tobacco user Tobacco use type: Cigarette Cigarette Packs Per Day: 0.5 Cigarettes Per Day: 10 Years Smoked: quit 05/05/21 e-Cigarette/Vaping Use: Never Used Second Hand Smoke Exposure: No Substance Use Type: Marijuana Current occupational status: employed Cognitive needs: No Hearing needs: No Vision needs: No Questionnaire Thrive Questionnaire Date Thrive assessed: 12/27/23 I am a: Patient What is your living situation today?: I have a steady place to live Within the past 12 months, did the food you bought not last and you didn't have the money to get more?: I choose not to answer this question Within the past 12 months, did you worry whether your food would run out before you got money to buy more?: I choose not to answer this question Do you have trouble paying for medicines?: I choose not to answer this question Do you have trouble getting transportation to medical appointments?: I choose not to answer this question Do you have trouble paying your heating and electricity bill?: I choose not to answer this question Do you have trouble taking care of your child, family member or friend?: No Do you have trouble with day-to-day activities such as bathing, preparing meals, shopping, managing finances, etc.?: I choose not to answer this question Are you currently unemployed and looking for a job?: No Are you interested in more education?: Yes Please select the resources that you would like help with: Education Currently or been in a relationship where the following occur: No concerns reported THRIVE Score: 0 LORE-7 AMB Questionnaire LORE-7 Date LORE - 7 assessed: 12/12/23 Source: Developed by Drs. Héctor Mccullough, Mattie Tellez, Jose Tamez and colleagues, with an educational endy from [employer]. Review of Systems Const All systems reviewed & are unremarkable except as noted in HPI and below Physical exam (Primary Care) Vital Signs: Last Vital Signs BP 140/82 H 03/14/24 15:20 BMI result Body Mass Index 30.5 Tobacco/Smoking Status: Tobacco use Status Tobacco use date assessed 12/12/23 03/14/24 15:31 Patient Tobacco Use Status Current someday Tobacco 03/14/24 15:31 Tobacco use type Cigarette 03/14/24 15:31 e-Cigarette/Vaping Use Never Used 03/14/24 15:31 Thrive Assessment: Date of Thrive Assessment Date Thrive assessed 12/27/23 03/14/24 15:31 Currently or been in a relationship where the following occur: No concerns reported Const General: cooperative, comfortable and no acute distress Orientation/consciousness: patient oriented x3 HENMT Head: Yes normocephalic Ears: external ears normal and TM's normal bilaterally General nose exam: Normal external nose present and Normal nasal mucous membranes and turbinates present Face and sinus: Yes sinuses nontender Mouth: moist mucous membranes Throat: Yes posterior oropharynx normal Eyes Pupils: Equal, round and reactive pupils present EOM: EOMs intact bilaterally Neck Neck: Yes full ROM and Yes no lymphadenopathy Resp Effort & Inspection: normal respiratory effort Auscultation: clear to auscultation bilaterally Cardio Heart sounds: S1 normal heart sound present and S2 normal heart sound present Neuro General: patient oriented x3 Cranial nerves: Yes Equal, round and reactive pupils present Motor exam (neuro): 5/5 motor strength present throughout Psych Speech and movement: Normal speech and movement present Coding Level of Care Code Est Pt Level 4 (51546) Diagnoses Vertigo R42 Concussion without loss of consciousness, initial encounter S06.0X0A Encounter type: initial encounter Loss of consciousness presence/duration: without LOC Time Spent (min) 30 Assessment & Plan Assessment & Plan (1) Vertigo: Code(s): R42 - Dizziness and giddiness Category: Medical Plan: Pt to f/u with Physical therapy as ordered. (2) Concussion: Code(s): S06.0XAA - Concussion with loss of consciousness status unknown, initial encounter Category: Medical Qualifiers: Encounter type: initial encounter Loss of consciousness presence/duration: without LOC Qualified Code(s): S06.0X0A - Concussion without loss of consciousness, initial encounter Plan: Symptoms have since been resolved.
== END 2024-03-14 16:02 | disposition home or self-care (01) ==
LOC: HO.HMCC 15:17
PROVIDERS: PCP Nurse Practitioner Family; Visit Provider Nurse Practitioner Family
DX: R42 Dizziness and giddiness (principal); S06.0X0A Concussion without loss of consciousness, initial encounter

== ENCOUNTER 2024-07-04 07:51 | Outpatient (AMB) | payer BC, SELFPAY ==
[2024-07-04 07:58] VITALS: BP 132/80; PULSE 72; TEMP 36.6; O2SAT 98; BMI 30.1
--- NOTE | 2024-07-04 07:58 | MHC.PC.OV ---
Vital Signs 07/04/24 07:58 Height 5 ft 7 in Weight 192 lb BMI 30.1 BP 132/80 Blood Pressure Location Lt brachial Position Sitting Pulse 72 Pulse Source Pulse Oximeter Temp 97.9 F Temp Source Oral Pulse Oximetry (%) 98 Intake Visit Reasons: DM followup Allergies amoxicillin [Amoxicillin] Allergy (Unknown, Verified 07/04/24 07:59) UNKNOWN erythromycin base Allergy (Unknown, Verified 07/04/24 07:59) Unknown Environmental Allergy (Unknown, Uncoded 02/08/24 10:55) RUNNY NOSE Medication List - Last Reconciled 07/04/24 by Aj Esteban, [facility]- apixaban 5 mg PO BID aspirin 81 mg PO DAILY cholecalciferol (vitamin D3) (Vitamin D3) 25 mcg PO DAILY dapagliflozin propanediol (Farxiga) 5 mg PO DAILY 30 days lancets (FreeStyle Lancets) As directed losartan 25 mg PO DAILY meclizine 25 mg PO BID PRN 14 days metoprolol succinate ER 25 mg PO DAILY nicotine (polacrilex) (Nicorette) 2 mg buccal Q4-8H PRN [id number] oil 300-1,000 mg (Greenleaf-3 Fish Oil) 1 cap PO DAILY rosuvastatin 40 mg PO DAILY semaglutide (Ozempic) 0.25 mg (0.368 mL) subcut QWEEK vitamin B complex 1 cap PO DAILY Tobacco use date assessed: 07/04/24 Dental Screening Dental Screen Date: 07/04/24 Did you have a dental visit in the last 12 months?: Yes Did you have a dental problem in the last 6 months where you did not have access to dental care?: No Was dental information given to patient?: Patient has dentist HPI DM followup HPI Details Chief Complaint The patient reports discontinuation of Jardiance due to high costs and insurance issues. History of Present Illness The patient is a 59-year-old male presenting for diabetes management. He has stopped taking Jardiance for the past 3 weeks to a month due to high insurance costs and is currently experiencing job-related stress while searching for new employment. a1c at 11.0 The patient denies any increase in thirst or urination, bowel irregularities, or changes in mood. He has a family history of pancreatic cancer, prompting additional screening with CA 19-9 and abdominal imaging. There is no personal history of pancreatitis. The patient is a long-time smoker, starting at age 17, smoking up to a pack daily. His obesity has contributed to decreased foot sensation, although monofilament testing was positive for intact sensation. Cardiac examination has indicated a faint systolic murmur, and pulmonology reports do not show any significant issues. The patient denies polyuria, polydipsia, and suicidal or homicidal ideation. Social History - He is currently facing significant stress due to job searching. - History of smoking since age 17, up to a pack per day. Health Maintenance - Screening for pancreatic cancer due to family history (planned CA 19-9 and MRI abdomen). possible genetic testing in the future - Discussion of alternative diabetes medications for cost management. - Referral for low-dose considerations due to smoking history. Review of Systems - General: Denies suicidal ideation, homicidal ideation. - Genitourinary: Denies polyuria, polydipsia. - Gastrointestinal: Denies constipation, diarrhea. - Respiratory: Denies lung symptoms. Physical Exam General: Cooperative, healthy appearing, comfortable, no acute distress and well developed Orientation: Patient oriented x3 Limitations: No limitations Head: Normal to inspection Ears: Hearing grossly normal bilaterally Nose: Normal external nose present Face and sinus: Normal facial exam Eyes: Appearance normal, both eyes and all related structures Neck: Normal visual inspection and Yes full ROM Respiratory: Lungs were fairly cleared bilat Cardiovascular: Faint systolic murmur. Regular rate and rhythm. Normal S1 and S2 GI: Normal to inspection. Soft to palpation and nontender Skin: No rashes or lesions noted Neuro: Patient oriented x3 Extremities: Positive sensation with use of monofilament, feet were intact Results - Upcoming CA 19-9 testing for pancreatic cancer screening. - Upcoming MRI of abdomen. Plan I will proceed with initiating treatment with Farxiga, considering its potential affordability over Jardiance, and additionally prescribe Ozempic to be administered weekly. With the patient's family history of pancreatic cancer in mind, I have included CA 19-9 in his labs and recommended an MRI of his abdomen for further evaluation. His obesity and smoking history warrant careful consideration of low-dose therapeutic interventions where applicable, with ongoing assessment of appropriate health maintenance strategies. Discussion Notes I discussed with the patient the need to adapt his diabetes management in light of his medication cost concerns and proposed trying Farxiga as a potential alternative. The use of Ozempic was also introduced to enhance glycemic control. The necessity of additional screening considering his maternal history of pancreatic cancer was addressed, and consent was obtained to proceed with CA 19-9 testing and an MRI of the abdomen. Smoking history was noted, and a referral for a guided cessation program will be considered at a follow-up visit. We have also reviewed the dietary and lifestyle modifications required in managing his conditions effectively, and follow-up care was arranged to monitor his response to the new treatment regimen. Patient Instructions - Begin taking Farxiga as prescribed. - Administer Ozempic once weekly as directed. - Prepare for lab tests and the MRI of the abdomen for further evaluation. - Continue to monitor blood sugar levels at home. - Maintain dietary modifications focused on controlled carbohydrate intake. - Seek support if feeling overwhelmed by stress or job search efforts. - Consider reducing smoking and explore cessation support options. - Keep scheduled follow-up appointments to evaluate progress with new treatment and management plans. COUNT INCLUDES THE [facility] Medical History Hypertensive retinopathy of both eyes Post concussion syndrome STEMI (ST elevation myocardial infarction) Elevated cholesterol DVT (deep venous thrombosis) Diabetes Anal fistula Surgical History Hx of colonoscopy Family History Father No problems noted. Mother Pancreatic cancer Mental health disorder Paternal Grandfather No problems noted. Brother Myocardial infarction Mental health disorder Sister Breast cancer Social History Housing: Apartment Alcohol intake: current Alcohol intake frequency: holidays/special occasions only Patient Tobacco Use Status: Current someday Tobacco user Tobacco use type: Cigarette Cigarette Packs Per Day: 0.5 Cigarettes Per Day: 10 Years Smoked: quit 05/05/21 e-Cigarette/Vaping Use: Never Used Second Hand Smoke Exposure: No Substance Use Type: Marijuana Current occupational status: employed Cognitive needs: No Hearing needs: No Vision needs: No Questionnaire PHQ-9 Over the last 2 weeks, how often have you been bothered by any of the following problems? 1. Little interest or pleasure in doing things: not at all 2. Feeling down, depressed, or hopeless: not at all 3. Trouble falling or staying asleep, or sleeping too much: several days 4. Feeling tired or having little energy: several days 5. Poor appetite or overeating: not at all 6. Feeling bad about yourself - or that you are a failure or have let yourself or your family down: not at all 7. Trouble concentrating on things, such as reading the newspaper or watching television: not at all 8. Moving or speaking so slowly that other people could have noticed. Or the opposite - being so fidgety or restless that you have been moving around a lot more than usual: not at all 9. Thoughts that you would be better off or of hurting yourself in some way: not at all Total score: 2 Depression Screening Interpretation: Negative Depression Screening Done: Yes 84388 - PHQ-9 Billing: Yes Source: Developed by Drs. Héctor Mccullough, Mattie Tellez, Jose Tamez and colleagues, with an educational endy from [employer]. Thrive Questionnaire Date Thrive assessed: 07/04/24 I am a: Patient What is your living situation today?: I have a place to live, but I am worried about losing it in the future Within the past 12 months, did the food you bought not last and you didn't have the money to get more?: Sometimes True Within the past 12 months, did you worry whether your food would run out before you got money to buy more?: Never true Do you have trouble paying for medicines?: Yes Do you have trouble getting transportation to medical appointments?: No Do you have trouble paying your heating and electricity bill?: Yes Do you have trouble taking care of your child, family member or friend?: No Do you have trouble with day-to-day activities such as bathing, preparing meals, shopping, managing finances, etc.?: No Are you currently unemployed and looking for a job?: No Are you interested in more education?: I choose not to answer this question Please select the resources that you would like help with: None Currently or been in a relationship where the following occur: I choose not to answer THRIVE Score: 3 AUDIT C Alcohol Use Questionnaire (AUDIT-C) 1. How often do you have a drink containing alcohol?: 2-4 times a month 2. How many drinks containing alcohol do you have on a typical day when you are drinking?: 1 or 2 3. How often do you have six or more drinks on one occasion?: Never Total Score: 2 Score Reviewed/Action Taken: Yes LORE-7 AMB Questionnaire LORE-7 Date LORE - 7 assessed: 07/04/24 Feeling nervous, anxious, or on edge: 0 = Not at all Not being able to stop or control worryin = Not at all Worrying too much about different things: 0 = Not at all Trouble relaxin = Not at all Being so restless that it is hard to sit still: 0 = Not at all Becoming easily annoyed or irritable: 0 = Not at all Feeling afraid as if something awful might happen: 0 = Not at all Total LORE-7 score (0-4 normal; 5-9 mild; 10-14 moderate; 15-21 severe): 0 Source: Developed by Drs. Héctor Mccullough, Mattie Tellez, Jose Tamez and colleagues, with an educational endy from [employer]. LORE-7 Assessment Billing LORE-7 Assessment Tool: LORE-7 Assessment 09882 Physical exam (Primary Care) Vital Signs: Last Vital Signs Temp 97.9 F 07/04/24 07:58 Pulse 72 07/04/24 07:58 BP 132/80 07/04/24 07:58 Pulse Ox 98 07/04/24 07:58 BMI result Body Mass Index 30.1 Tobacco/Smoking Status: Tobacco use Status Tobacco use date assessed 07/04/24 07/04/24 08:00 Patient Tobacco Use Status Current someday Tobacco 07/04/24 08:00 Tobacco use type Cigarette 07/04/24 08:00 e-Cigarette/Vaping Use Never Used 07/04/24 08:00 PHQ-9: PHQ-9 Score PHQ-9: Total score 2 07/04/24 08:00 Depression Screening Interpretation: Negative Thrive Assessment: Date of Thrive Assessment Date Thrive assessed 07/04/24 07/04/24 08:00 Currently or been in a relationship where the following occur: I choose not to answer Results AMB Hemoglobin A1c AMB Hemoglobin A1c 11.0 % Last Edit by Domenico Gil CMA on 07/04/24 08:34 Results Reviewed Results Reviewed: Laboratory Last Values Hgb A1c (Clinic) 11.0 % (4.0-6.0) H 07/04/24 08:33 Coding Level of Care Code Est Pt Level 3 (44701) Diagnoses Diabetes E11.9 Screening PSA (prostate specific antigen) Z12.5 Family history of pancreatic cancer Z80.0 Smoker F17.200 Additional Codes LORE-7 Assessment Billing - LORE-7 Assessment Tool: LORE-7 Assessment 04845 ([id number]) PHQ-9 - 72408 - PHQ-9 Billing: Yes ([id number]) Assessment & Plan Assessment & Plan (1) Diabetes: Code(s): E11.9 - Type 2 diabetes mellitus without complications Category: Medical (2) Screening PSA (prostate specific antigen): Code(s): Z12.5 - Encounter for screening for malignant neoplasm of prostate Category: Medical (3) Family history of pancreatic cancer: Code(s): Z80.0 - Family history of malignant neoplasm of digestive organs Category: Medical (4) Smoker: Code(s): F17.200 - Nicotine dependence, unspecified, uncomplicated Category: Social Hx Plan . Orders: Orders AMB Hemoglobin A1c Today Z13.9 - Encounter for screening, unspecified Complete Blood Count Auto Diff Today E11.9 - Type 2 diabetes mellitus without complications Comprehensive [place]. Panel Fast Today E11.9 - Type 2 diabetes mellitus without complications Lipid Panel Today E11.9 - Type 2 diabetes mellitus without complications Prostate Specific Antigen Scr Today Z12.5 - Encounter for screening for malignant neoplasm of prostate MR abdomen wo/w con Today Z80.0 - Family history of malignant neoplasm of digestive organs TSH reflex Free T4 Today E11.9 - Type 2 diabetes mellitus without complications UA CC w/rflx Micro + Cult Today E11.9 - Type 2 diabetes mellitus without complications Carbohydrate Antigen 19-9 Today Z80.0 - Family history of malignant neoplasm of digestive organs Microalbumin, Random (w Creat) Today E11.9 - Type 2 diabetes mellitus without complications Referrals Lung Cancer Screening Referral F17.200 - Nicotine dependence, unspecified, uncomplicated Medications: New dapagliflozin propanediol (Farxiga) 5 mg PO DAILY 30 days 30 tabs 2RF semaglutide (Ozempic) for 4 weeks 0.25 mg (0.368 mL) subcut QWEEK 3 mL 0RF
== END 2024-07-04 09:01 | disposition home or self-care (01) ==
PROVIDERS: PCP Nurse Practitioner Family; Visit Provider Nurse Practitioner Family
DX: E11.9 Type 2 diabetes mellitus without complications (principal); Z12.5 Encounter for screening for malignant neoplasm of prostate; Z80.0 Family history of malignant neoplasm of digestive organs; F17.200 Nicotine dependence, unspecified, uncomplicated; Z13.9 Encounter for screening, unspecified

== ENCOUNTER 2024-07-04 07:51 | Outpatient (REF) | payer BC, SELFPAY ==
[2024-07-04 10:14] LABS: MANUAL DIFF FLAG NO
[2024-07-04 10:19] LABS: Basophils Percent Auto 0.4 % (0-2); Eosinophils Absolute Auto 0.1 X10*3/uL (0.0-0.4); Eosinophils Percent Auto 1.7 % (0-4); Hematocrit 46.3 % (42.0-52.0); Hemoglobin 15.8 g/dl (14.0-18.0); Imm Gran Abs Auto 0.01 X10*3/uL (0.00-0.03); Imm Gran Pct Auto 0.2 % (0.0-0.4); Lymphocytes Absolute Auto 1.6 X10*3/uL (1.2-4.9); Lymphocytes Percent Auto 30.9 % (20-40); Mean Corpuscular HGB Conc 34.1 g/dl (31.0-36.0); Mean Corpuscular Hemoglobin 29.3 pg (27.0-33.0); Mean Corpuscular Volume 85.7 fL (80.0-98.0); Mean Platelet Volume 8.9 fL (9.4-12.4); Monocytes Absolute Auto 0.5 X10*3/uL (0.1-1.2); Monocytes Percent Auto 8.9 % (2-11); Neutrophils Absolute Auto 3.1 x10*3/uL (2.0-8.3); Neutrophils Percent Auto 57.9 % (45-73); Platelet Count 165 X10*3/uL (160-400); Red Cell Distribution Width 12.9 % (11.0-16.0); White Blood Count 5.3 X10*3/uL (4.8-10.8)
[2024-07-04 10:23] LABS: Appearance Urine Clear; Color Urine Yellow; Glucose Urine UA >=1000 mg/dL (Negative); Leukocyte Esterase Urine Negative (Negative); Nitrite Urine Negative (Negative); Specific Gravity - Urine >= 1.030 (1.005-1.025); UMIC TRIGGER UACC YES; Urine Blood Trace (Negative); Urine Ketones Trace mg/dL (Negative); Urine Protein Negative (Neg-Trace)
[2024-07-04 10:29] LABS: Bacteria Urine None Seen (None Seen); Hyaline Casts Urine 0-2 /LPF (0-2); RBC Urine 0-2 /HPF (0-2); Squamous Epithelial Cell Urine 0-2 /HPF (0-2); WBC Urine 0-5 /HPF (0-5)
[2024-07-04 10:53] LABS: Creatinine Urine 74.77 mg/dL; Microalbum/Creatinine Ratio Ur 29.4 ug/mg cr (<30)
[2024-07-04 11:06] LABS: Albumin Level 4.3 g/dL (3.5-5.0); Alkaline Phosphatase 71 U/L (39-117); Anion Gap 13 (12-20); Aspartate Amino Transferase 32 U/L (5-37); Bilirubin Total 0.9 mg/dL (0.0-1.0); Blood Urea Nitrogen 16 mg/dL (9-16); Calcium 9.4 mg/dL (8.4-10.2); Carbon Dioxide 22 mmol/L (22-29); Chloride 108 mmol/L (96-108); Cholesterol 145 mg/dL (<200); Estimated Glomerular Filt Rate > 60; Glucose Fasting 295 mg/dL (60-99); HDL Cholesterol 40 mg/dL (>40); LDL Cholesterol Calculated 84 mg/dL (<100); Potassium 4.2 mmol/L (3.3-5.1); Sodium 139 mmol/L (135-145); TSH reflex Free T4 1.06 uIU/mL (0.32-4.0); Triglycerides 107 mg/dL (<150)
[2024-07-04 11:15] LABS: Prostate Specific Antigen Scr 0.24 ng/mL (<0.05-4.0)
[2024-07-04 11:20] LABS: Alanine Aminotransferase 35 U/L (0-40)
[2024-07-08 11:29] LABS: Carbohydrate Antigen 19-9 4 U/mL (<34)
== END 2024-07-04 07:52 | disposition home or self-care (01) ==
LOC: HO.HMGCLDS 07:51
PROVIDERS: PCP Nurse Practitioner Family; Visit Provider Nurse Practitioner Family
DX: E11.9 Type 2 diabetes mellitus without complications (principal); F17.200 Nicotine dependence, unspecified, uncomplicated; Z80.0 Family history of malignant neoplasm of digestive organs; Z12.5 Encounter for screening for malignant neoplasm of prostate
CPT/HCPCS: 36415; 80053; 80061; 81001; 82043; 82570; 83036; 84153; 84443; 85025; 86301; 96127

== ENCOUNTER 2025-03-05 15:15 | Emergency (ER) | payer BC, SELFPAY ==
--- NOTE | ~2025-03-05 | CT_ITS ---
CLINICAL HISTORY: right facial numbness CT Head without contrast. CT angiography head and neck with contrast. 3D Postprocessing. Comparison: CT - CT ANGIO HEAD NECK - 03/05/25 16:36 EDT MR/SR - MR BRAIN WITHOUT IV CONTRAST - 02/11/24 18:44 EDT Findings: HEAD CT: No intra-axial mass, midline shift, hydrocephalus, or acute hemorrhage. Bilateral basal ganglia calcifications. Mild diffuse cerebral volume loss. Moderate left maxillary sinus mucosal thickening. The orbits are unremarkable. There is no acute fracture. HEAD AND NECK CTA: Mild calcific origin stenosis of the right vertebral artery. Left vertebral artery arises directly from the aortic arch. Roughly 20% calcific origin stenosis of the bilateral internal carotid arteries. Arterial tree of the head and neck is otherwise within normal limits. No abnormal intracranial enhancement. The visualized thyroid gland is unremarkable. No cervical mass or fluid collection. Lung apices clear. No acute fracture. IMPRESSION: 1. No acute intracranial abnormality. 2. No acute process involving the arterial tree of the head and neck. Anterior and posterior circulation stenoses as described above. This document has been electronically signed by: Albertina Brito MD on 03/05/2025 17:31:09
--- NOTE | ~2025-03-05 | MR_ITS ---
CLINICAL HISTORY: right facial droop MR Brain without gadolinium Comparison: CT/SR - CT ANGIO HEAD NECK - 03/05/25 16:45 EDT Findings: No restricted diffusion. No intra-axial mass or hemorrhage. No midline shift. No hydrocephalus. The pituitary gland and sella are unremarkable. The cerebellar tonsils are appropriately positioned. Vascular flow voids are intact. Orbital contents are unremarkable. Mild mucoperiosteal thickening of the ethmoid sinuses. No focal bone lesion. IMPRESSION: No acute/subacute infarct. This document has been electronically signed by: Aliza Brito MD on 03/05/2025 20:47:44
[2025-03-05 15:17] VITALS: BP 148/71; PULSE 74; RESP 18; TEMP 36.5; O2SAT 97; BMI 26.2
--- NOTE | 2025-03-05 15:22 | ED.GENADULT ---
HPI - General Adult General Chief complaint: Neuro Symptoms/Deficit Stated complaint: rt side face droop/numbness Time Seen by Provider: 03/05/25 18:02 Source: patient, RN notes reviewed and old records reviewed Mode of arrival: ambulatory Limitations: no limitations History of Present Illness ED Provider: Joey HPI narrative: 59-year-old male with a past medical history significant for coronary artery disease, BPH, previous DVT on Eliquis, diabetes presents for evaluation of facial droop. Patient reports that he actually started with symptoms Monday morning, 2 days ago He reports some brain fog, some numbness in the right side of his face and facial droop to the corner of his mouth in the right He reports that sometimes when he is talking or drinking out of a straw he has ?some drooling out of the right side. Denies any slurred speech. He reports some chronic weakness of the right shoulder but otherwise no new weakness to any area Denies any significant headaches. Denies any chest pain, shortness of breath with the palpitations. He reports that yesterday 2 separate people at work told him in the noticed some drooping to the right side of his face Related Data Home Medications ?Medication ?Instructions ?Recorded ?Confirmed cholecalciferol (vitamin D3) 25 25 mcg PO DAILY 03/26/21 07/04/24 mcg (1,000 unit) tablet (Vitamin D3) vitamin B complex 1 cap PO DAILY 03/26/21 07/04/24 omega-3s 300 is-ohf-iyu-other 1 cap PO DAILY 11/20/22 07/04/24 dftwv3h-rjeg oil 1,000 mg capsule (Madison-3 Fish Oil) losartan 25 mg tablet 25 mg PO DAILY 02/16/23 07/04/24 metoprolol succinate 25 mg 25 mg PO DAILY 02/16/23 07/04/24 tablet,extended release 24 hr apixaban 5 mg tablet 5 mg PO BID 02/16/24 07/04/24 Previous Rx's ?Medication ?Instructions ?Recorded aspirin 81 mg tablet,delayed 81 mg PO DAILY #3 tabs 11/20/22 release nicotine (polacrilex) 2 mg buccal 2 mg buccal Q4-8H PRN nicotine 03/27/23 lozenge (Nicorette) cravings #72 ea lancets 28 gauge (FreeStyle #100 ea 03/04/24 Lancets) meclizine 25 mg tablet 25 mg PO BID PRN dizziness 14 days 03/04/24 #28 tabs dapagliflozin propanediol 5 mg 5 mg PO DAILY 30 days #30 tabs 10/20/24 tablet (Farxiga) rosuvastatin 40 mg tablet 40 mg PO DAILY #90 tabs 01/06/25 semaglutide 0.25 mg or 0.5 mg (2 0.25 mg (0.368 mL) subcut QWEEK #3 02/17/25 mg/3 mL) subcutaneous pen injector mL (Ozempic) azithromycin 250 mg tablet See Rx Instructions PO .COMPLEX #6 03/05/25 tabs Allergies Allergy/AdvReac Type Severity Reaction Status Date / Time amoxicillin (Amoxicillin) Allergy Unknown UNKNOWN Verified 03/05/25 15:24 erythromycin base Allergy Unknown Unknown Verified 03/05/25 15:24 Environmental Allergy Unknown RUNNY NOSE Uncoded 02/08/24 10:55 Review of Systems Constitutional: Constitutional: Denies body ache(s), Denies chills, Denies fever(s), Denies frequent falls and Denies headache(s) Eyes: Eyes: Denies blurry vision ENT: Denies vertigo, Denies dizziness and Denies headache(s) Cardiovascular: Cardiovascular: Denies chest pain, Denies syncope and Denies dyspnea on exertion Respiratory: Respiratory: Denies cough and Denies dyspnea on exertion Gastrointestinal: Gastrointestinal: Denies abdominal pain Musculoskeletal: Musculoskeletal: Denies abnormal gait, Denies back pain and Reports numbness (Right side of face) Integumentary/Breasts: Skin/Breast: Denies rash Neurologic: Denies Abnormal speech present, Denies abnormal gait, Denies behavioral changes, Denies confusion, Denies vertigo, Denies dizziness, Denies syncope, Denies frequent falls, Denies headache(s), Denies lack of coordination, Denies focal weakness and Reports numbness (Right side of face) Comments: Reports right facial droop Psychiatric: Psychiatric: Denies behavioral changes and Denies confusion PMFSH Past Medical History Medical History Hypertensive retinopathy of both eyes Post concussion syndrome STEMI (ST elevation myocardial infarction) Elevated cholesterol DVT (deep venous thrombosis) Diabetes Anal fistula Surgical History Hx of colonoscopy Family History Family History Father No problems noted. Mother Pancreatic cancer Mental health disorder Paternal Grandfather No problems noted. Brother Myocardial infarction Mental health disorder Sister Breast cancer Social History Social History Housing: Apartment Alcohol intake: current Alcohol intake frequency: holidays/special occasions only Patient Tobacco Use Status: Current someday Tobacco user Tobacco use type: Cigarette Cigarette Packs Per Day: 0.5 Cigarettes Per Day: 10 Years Smoked: quit 05/05/21 e-Cigarette/Vaping Use: Never Used Second Hand Smoke Exposure: No Substance Use Type: Marijuana Advance Directives: No Advance Directives Information Provided: No Current occupational status: employed Cognitive needs: No Hearing needs: No Vision needs: No Physical Exam ED Vital Signs: Vital Signs - 24 hr 03/05/25 15:17 03/05/25 15:44 03/05/25 19:25 Temperature 97.7 F 98.2 F Pulse Rate 74 69 62 Respiratory Rate 18 16 12 Blood Pressure 148/71 H 121/68 115/56 L Pulse Oximetry 97 95 95 Oxygen Delivery Method Room Air Room Air Room Air BMI result Body Mass Index 26.2 Const General: No confusion Nutritional Appearance: well nourished Orientation/consciousness: No confusion HENMT Head: Yes normocephalic and Yes atraumatic Throat: Yes posterior oropharynx normal Eyes Eyelids: Yes eyelids normal Conjunctivae: conjunctivae normal Sclerae: sclerae normal Corneas: corneas normal Pupils: Equal, round and reactive pupils present EOM: EOMs intact bilaterally Neck Neck: Yes full ROM Resp Effort & Inspection: normal respiratory effort, able to speak in complete sentences and not labored Cardio Rate: regular rate Rhythm: regular rhythm Skin General skin exam: elasticity normal Neuro Other: The patient appears to have some mild facial droop on the right involving the corner of the mouth only. There was no involvement of the forehead or eyes. Speech is clear. General: No confusion Cranial nerves: Yes Equal, round and reactive pupils present and Yes Bilaterally intact EOM present Cognition (Neuro): normal cognition Speech: No Abnormal speech present Extrem Other: Moving all extremities well without any obvious deformities NIH Stroke Scale Internal: Initial- Upon Arrival Time: 19:15 Level of Consciousness: Alert Level of Consciousness Questions: Answers both questions correctly Level of Consciousness Commands: Performs both tasks correctly Best Gaze: Normal Visual: No visual loss Facial Palsy: Minor paralyis Motor Arm (Right): No drift Motor Arm (Left): No drift Motor Leg (Right): No drift Motor Leg (Left): No drift Limb Ataxia: Absent Sensory: Normal Best Language: No aphasia Dysarthia: Normal Extinction and Inattention: No abnormality Score: 1 Course Course Course Narrative: Rapid medical screening exam was performed. Patient stable at time of evaluation. This is a 59-year-old male history of diabetes, CAD presented hospital today for right facial droop and numbness on the right-sided face. This has been going on since Monday . He thought this was a dental issue initially. He stated this numbness is around the corner of his right side of his mouth. He stated the people around him noticed that he has a right facial droop therefore he came to the ER for further evaluation. No other symptoms at this time. Jahaira Petit, DO 03/05/25 1525 Reevaluation(s) Reevaluation #1: The patient's brain MRI did not show any evidence of acute CVA does show some mucoperiosteal thickening and the patient does have clinical signs of sinusitis. 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 He does reports some congestion, we will treat with a Z-Juan M which she has tolerated in the past without any issue Time: 20:58 Medications Administered Discontinued Medications Generic Name Dose Route Start Last Admin Trade Name Freq PRN Reason Stop Dose Admin Acetaminophen 975 mg 03/05/25 18:33 03/05/25 19:10 Acetaminophen 325 Mg Tablet PO 03/05/25 18:34 975 mg ONCE ONE Administration Iohexol 100 ml 03/05/25 16:53 03/05/25 16:54 Iohexol 350 Mg/Ml 100 Ml Infus..Btl IV 03/05/25 16:54 75 ml ONCE ONE Administration Medical Decision Making Medical Decision Making MDM Narrative: 59-year-old male past medical history as above presents for evaluation of facial droop on the right. He also complains of some brain fog but is alert and oriented x4. He has an NIH stroke score of 1 for mild facial palsy with drooping to the right side of the mouth. His speech is clear, strength is equal to all extremities. He had a CT scan of the brain and angiography of the head and neck on arrival which shows no LVO or intracranial mass, intracranial hemorrhage. The patient's symptoms did start over 48 hours ago. Therefore TNK was not administered as he has a low stroke score in his also well out of the window. I did however order an MRI to rule out acute CVA Differential Diagnosis Differential Diagnoses: The differential diagnosis associated with the presentation includes Acute CVA Torres's palsy Cranial nerve palsy TIA Admission/Observation Consideration of admission/observation: Escalation of care including admission/observation considered Lab Data MDM Lab Attestation statement: I reviewed the patient's lab results. No leukocytosis or anemia. Platelet count has 536640. No significant electrolyte abnormalities warranting dimension. The patient is a known diabetic, random glucose of 218 but no evidence of DKA. 03/05/25 15:43 03/05/25 15:43 Labs: Lab Results 03/05/25 03/05/25 Range/Units 15:43 16:17 WBC 7.0 (4.8-10.8) X10*3/uL RBC 5.59 (4.60-5.80) X10*6/uL Hgb 16.1 (14.0-18.0) g/dl Hct 49.2 (42.0-52.0) % MCV 88.0 (80.0-98.0) fL MCH 28.8 (27.0-33.0) pg MCHC 32.7 (31.0-36.0) g/dl RDW 13.0 (11.0-16.0) % Plt Count 156 L (160-400) X10*3/uL MPV 8.8 L (9.4-12.4) fL Immature Gran % (Auto) 0.4 (0.0-0.4) % Neut % (Auto) 58.4 (45-73) % Lymph % (Auto) 29.8 (20-40) % Larimer % (Auto) 10.0 (2-11) % Eos % (Auto) 1.0 (0-4) % Baso % (Auto) 0.4 (0-2) % Lymph # (Auto) 2.1 (1.2-4.9) X10*3/uL Larimer # (Auto) 0.7 (0.1-1.2) X10*3/uL Eos # (Auto) 0.1 (0.0-0.4) X10*3/uL Baso # (Auto) 0.0 (0.0-0.2) X10*3/uL Abs Immat Gran (auto) 0.03 (0.00-0.03) X10*3/uL Absolute Neuts (auto) 4.1 (2.0-8.3) x10*3/uL Absolute Nucleated RBC 0.000 (0.0-0.012) X10*3/uL Nucleated RBC % (auto) 0.0 (0.0-0.2) /100WBC PT 10.5 L (10.9-12.4) SEC INR 0.9 (0.9-1.1) Sodium 139 (135-145) mmol/L Potassium 4.1 (3.3-5.1) mmol/L Chloride 105 (96-108) mmol/L Carbon Dioxide 25 (22-29) mmol/L Anion Gap 13 (12-20) BUN 12 (9-16) mg/dL Creatinine 0.62 (0.5-1.4) mg/dL Estim Creat Clear Calc 118.4 Estimated GFR > 60 Random Glucose 218 H (60-115) mg/dL Calcium 9.4 (8.4-10.2) mg/dL Magnesium 2.2 (1.6-2.6) mg/dL Triglycerides 139 (<150) mg/dL Cholesterol 146 (<200) mg/dL LDL Cholesterol, Calc 76 (<100) mg/dL HDL Cholesterol 43 (>40) mg/dL Independent Interpretation I performed an independent interpretation of an: MRI Interpretation: Findings: No restricted diffusion. No intra-axial mass or hemorrhage. No midline shift. No hydrocephalus. The pituitary gland and sella are unremarkable. The cerebellar tonsils are appropriately positioned. Vascular flow voids are intact. Orbital contents are unremarkable. Mild mucoperiosteal thickening of the ethmoid sinuses. No focal bone lesion. IMPRESSION: No acute/subacute infarct. This document has been electronically signed by: Aliza Brito MD on 03/05/2025 20:47:44 Radiology Impression Discussion of test interpretation with radiology: I have reviewed the radiologist's reading. Radiologist Impression: Findings: HEAD CT: No intra-axial mass, midline shift, hydrocephalus, or acute hemorrhage. Bilateral basal ganglia calcifications. Mild diffuse cerebral volume loss. Moderate left maxillary sinus mucosal thickening. The orbits are unremarkable. There is no acute fracture. HEAD AND NECK CTA: Mild calcific origin stenosis of the right vertebral artery. Left vertebral artery arises directly from the aortic arch. Roughly 20% calcific origin stenosis of the bilateral internal carotid arteries. Arterial tree of the head and neck is otherwise within normal limits. No abnormal intracranial enhancement. The visualized thyroid gland is unremarkable. No cervical mass or fluid collection. Lung apices clear. No acute fracture. IMPRESSION: 1. No acute intracranial abnormality. 2. No acute process involving the arterial tree of the head and neck. Anterior and posterior circulation stenoses as described above. This document has been electronically signed by: Albertina Brito MD on 03/05/2025 17:31:09 External Record Review External record reviewed: Inpatient record and Outpatient record Chronic Conditions Patient?s care impacted by: Diabetes and Hypertension Discharge Plan Discharge Clinical Impression: Facial droop Patient Disposition: Home, Self-Care Instructions: Sinusitis (ED) Additional Instructions: Your workup in the ER did not show any evidence of a stroke. Take the azithromycin/Z-Juan M as prescribed to treat sinus infection. Take all your other medications as prescribed Your primary doctor, return for new or worsening symptoms Prescriptions: New azithromycin 250 mg tablet See Rx Instructions .ROUTE .COMPLEX Qty: 6 0RF Rx Instructions: For 250 mg dose pack: take 500 mg today (day 1), then 250 mg for 4 days (days 2-5) No Action nicotine (polacrilex) [Nicorette] 2 mg lozenge 2 mg buccal Q4-8H PRN (Reason: nicotine cravings) Qty: 72 0RF apixaban 5 mg tablet 5 mg PO BID meclizine 25 mg tablet 25 mg PO BID PRN (Reason: dizziness) 14 Days Qty: 28 0RF (DME) lancets [FreeStyle Lancets] 28 gauge misc See Rx Instructions .ROUTE .MEDSUPPLY Qty: 100 4RF Rx Instructions: As directed dapagliflozin propanediol [Farxiga] 5 mg tablet 5 mg PO DAILY 30 Days Qty: 30 2RF rosuvastatin 40 mg tablet 40 mg PO DAILY Qty: 90 1RF Ozempic 0.25 mg or 0.5 mg (2 mg/3 mL) pen injector 0.25 mg subcut QWEEK Qty: 3 0RF Rx Instructions: for 4 weeks vitamin B complex Capsule 1 cap PO DAILY cholecalciferol (vitamin D3) [Vitamin D3] 25 mcg (1,000 unit) Tablet 25 mcg PO DAILY aspirin 81 mg Tablet,Delayed Release (Dr/Ec) 81 mg PO DAILY Qty: 3 0RF Madison-3 Fish Oil 300-1,000 mg Capsule 1 cap PO DAILY losartan 25 mg tablet 25 mg PO DAILY metoprolol succinate 25 mg tablet extended release 24 hr 25 mg PO DAILY Print Language: Setswana
--- NOTE | 2025-03-05 15:24 | ECG_ITS ---
Test Reason : CVA EVAL Blood Pressure : */* mmHG Vent. Rate : 65 BPM Atrial Rate : 65 BPM P-R Int : 152 ms QRS Dur : 90 ms QT Int : 422 ms P-R-T Axes : 12 51 31 degrees QTcB Int : 438 ms Poor data quality, interpretation may be adversely affected Normal sinus rhythm Normal ECG When compared with ECG of 20-Nov-2022 08:17, Premature atrial complexes are no longer Present Referred By: Jahaira Petit Electronically Signed By: BRONWYN MCCULLOUGH
[2025-03-05 15:44] VITALS: BP 121/68; PULSE 69; RESP 16; TEMP 36.8; O2SAT 95
[2025-03-05 15:54] LABS: MANUAL DIFF FLAG NO
[2025-03-05 16:01] LABS: Hematocrit 49.2 % (42.0-52.0); Hemoglobin 16.1 g/dl (14.0-18.0); Imm Gran Abs Auto 0.03 X10*3/uL (0.00-0.03); Imm Gran Pct Auto 0.4 % (0.0-0.4); Lymphocytes Absolute Auto 2.1 X10*3/uL (1.2-4.9); Mean Corpuscular HGB Conc 32.7 g/dl (31.0-36.0); Mean Corpuscular Hemoglobin 28.8 pg (27.0-33.0); Mean Corpuscular Volume 88.0 fL (80.0-98.0); NRBC Abs Auto 0.000 X10*3/uL (0.0-0.012); NRBC Pct Auto 0.0 /100WBC (0.0-0.2); Platelet Count 156 X10*3/uL (160-400); Red Blood Count 5.59 X10*6/uL (4.60-5.80); White Blood Count 7.0 X10*3/uL (4.8-10.8)
[2025-03-05 16:10] LABS: Anion Gap 13 (12-20); Blood Urea Nitrogen 12 mg/dL (9-16); Calcium 9.4 mg/dL (8.4-10.2); Carbon Dioxide 25 mmol/L (22-29); Chloride 105 mmol/L (96-108); Cholesterol 146 mg/dL (<200); Creatinine Clr Calc Pharmacy 118.4; Estimated Glomerular Filt Rate > 60; HDL Cholesterol 43 mg/dL (>40); Magnesium 2.2 mg/dL (1.6-2.6); Potassium 4.1 mmol/L (3.3-5.1); Sodium 139 mmol/L (135-145); Triglycerides 139 mg/dL (<150)
[2025-03-05 16:34] LABS: INTERNATIONAL NORM RATIO 0.9 (0.9-1.1); Prothrombin Time 10.5 SEC (10.9-12.4)
[2025-03-05] MEDS: iohexoL 350 MG/ML 100 ML INFUS..BTL IV (16:54)
[2025-03-05 19:25] VITALS: BP 115/56; PULSE 62; RESP 12; O2SAT 95
--- OUTSIDE RECORDS SUMMARY | 2025-03-05 19:57 | XMS_ITS | Patient Health Record ---
Author Organization [facility] Address [address] [place] [address] Care Team Providers Care Slunk Skinner Name Role Phone ZBIGNIEWZAMZAM SHINE Primary Care Provider Héctor Beltran [phone] Allergies Allergen (clinical drug ingredient) Drug/Non Drug Allergy documented on EMR Reaction Allergy Type Onset Date Status erythromycin Erythromycin Unknown Drug Allergy A ctive amoxicillin Amoxicillin Unknown Drug Allergy Act dave Reason For Referral No Information Medications Medication SIG (Take, Route, Frequency, Duration) Notes Start Date End Date Status Eliquis 5 MG as directed Orally Active Immunizations Vaccine Route Administration Date Status Comme nts Influenza Unknown 07/16/2019 Refused Social History Tobacco Use: Social History Observation Description Date Details (start date - stop date) Current Smoker NA - NA Tobacco Use/Smoking Question Answer Notes Patient is a current smoker How often do you smoke cigarettes? every day How many cigarettes a day do you smoke? 11-20 Alcohol Screen Question Answer Notes Did you have a drink contain ing alcohol in the past year? Yes How often did you have a dri nk containing alcohol in the past year? 4 or more times a week (4 points) How many drinks did you have on a typical day when you were drinking in the past year? 1 or 2 drinks (0 point) How often did you have 6 or more drinks on one occasion in the past year? Never (0 point) Points 4 Interpretation Positive Section Notes: Smoker; 1-2 beers QD Problems Problem Type SNOMED Code ICD Code Onset Dates Problem Status W/U Status Risk Notes Problem Screening for malignant neoplasm of colon (693649222) Encounter for screening for malignant neoplasm of colon (Z12.11) Active confirmed Problem Preprocedural examination (419868047715154) Preprocedural examination (Z01.818) Active confirmed Plan Of Treatment Future Test Test Name Order Date COLONOSCOPY 07/16/2019 Insurance Providers Payer Name Payer Address Payer Phone Subscriber Number Group Number Insured Name Patient Relationship to Insured Coverage Start Date Coverage End Date [facility] [address] [place], [place] [phone] [id number] [id number] ARRIOLA Self - patient is the insured Medical (General) History Medical History History ICD Code DVT in fall Kidney stones Denies [place],CVA,Lung disease,renal disease Diet-controlled diabetes Negative colonoscopy in 10/2008 Neg. celiac disease labs in 2009 Surgical History Surgery Date(Month/Year) Perianal fistula repair- Dr. Real-[id number] 0 Tonsillectomy and adenoidectomy
[2025-03-05 21:16] VITALS: BP 125/69; PULSE 61; RESP 16; TEMP 36.4; O2SAT 95
== END 2025-03-05 21:17 | disposition home or self-care (01) ==
PROVIDERS: Emergency Provider Student in an Organized Health Care Education/Training Program; PCP Nurse Practitioner Family
DX: R29.810 Facial weakness (principal); E11.9 Type 2 diabetes mellitus without complications; Z86.718 Personal history of other venous thrombosis and embolism; Z79.01 Long term (current) use of anticoagulants
CPT/HCPCS: 36415; 70496; 70498; 70551; 80048; 80061; 83735; 85025; 85610; 93005; 99285; Q9967

== ENCOUNTER → 2025-03-05 15:22 | Outpatient (BNV) | payer BC, SELFPAY | PROVIDERS: PCP Nurse Practitioner Family; Visit Provider Radiology Diagnostic Radiology | DX: I65.23 Occlusion and stenosis of bilateral carotid arteries (principal); R29.810 Facial weakness | CPT/HCPCS: 70496; 70498; 70551 ==

== ENCOUNTER → 2025-03-05 15:24 | Outpatient (BNV) | payer BC, SELFPAY | PROVIDERS: Emergency Provider Student in an Organized Health Care Education/Training Program; PCP Nurse Practitioner Family; Visit Provider Internal Medicine | DX: Z13.6 Encounter for screening for cardiovascular disorders (principal) | CPT/HCPCS: 93010 ==

== ENCOUNTER 2025-03-07 07:57 | Outpatient (AMB) | payer BC, SELFPAY ==
--- OUTSIDE RECORDS SUMMARY | 2025-03-05 14:27 | XMS_ITS | Continuity of Care Document ---
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 Name Role Phone Eulalia SIMMONS, Zamzam Butterfield Primary Care Physician [id number] Date[facility]s): 03/05/25 - 03/05/[address] [address]- Discharge Disposition: A-D/C Walkout Attending Physician: Haresh Casanova MD Admitting Physician: Haresh Casanova MD Referring Physician: Not on Staff, Referring MD Encounter Type: Disch ES Allergies, Adverse Reactions, Alerts No Known Allergies Immunizations Given and Recorded Vaccine Date Status Refusal Reason SARS-CoV-2 (COVID-19) mRNA BNT-162b2 vac 09/12/20 Given SARS-CoV-2 (COVID-19) mRNA BNT-162b2 vac 08/22/20 Given Medications Eliquis 5 mg oral tablet 1 tablet = 5 mg, By Mouth, 2 times a day, # 60 tablet, 5 Refills, Maintenance, 12/23/24 8:24:00 AM EDT, Tablet, [id number], Partial fill upon patient request if the prescription is for a schedule II opioid drug., 170, cm, 01/22/24 9:20:00 EDT, Height Start Date: 12/23/24 Status: Ordered Medication Dispense Status: Completed Quantity: 60.0 Unit: tablet Total Allowed Fills: 6 Fills Dispensed: 0 Jardiance 25 mg oral tablet 1 tablet = 25 mg, By Mouth, Daily in AM, # 30 tablet, 3 Refills, Maintenance, 12/23/24 8:24:00 AM EDT, Tablet, [id number], Partial fill upon patient request if the prescription is for a schedule II opioid drug., 170, cm, 01/22/24 9:20:00 EDT, Height Start Date: 12/23/24 Status: Ordered Medication Dispense Status: Completed Quantity: 30.0 Unit: tablet Total Allowed Fills: 4 Fills Dispensed: 0 losartan 25 mg oral tablet 12.5 mg, 0.5, tablet, By Mouth, Daily, # 45 tablet, Refills 2, Tot. Refills 2, Maintenance, :03:00 PM EDT, Route to Pharmacy Electronically, [id number], Partial fill upon patient request if the prescription is for a schedule II opioid drug., 170, cm, 12/08/22 14:43:00 EDT, Height, 83, kg, 11/20/22 11:37:00 EDT, Dry Weight Start Date: 02/07/23 Status: Ordered Medication Dispense Status: Completed Quantity: 45.0 Unit: tablet Total Allowed Fills: 3 Fills Dispensed: 0 meclizine 25 mg oral tablet 1 tablet = 25 mg, By Mouth, 2 times a day, # 60 tablet, 0 Refills, Maintenance, 01/19/24 2:16:00 PM EDT, Tablet, Partial fill upon patient request if the prescription is for a schedule II opioid drug. Start Date: 01/19/24 Status: Ordered Medication Dispense Status: Completed Quantity: 60.0 Unit: tablet Total Allowed Fills: 1 Fills Dispensed: 0 metoprolol 25 mg oral tablet, extended release 12.5 mg, 0.5, tablet, By Mouth, Daily, # 15 tablet, Refills 11, Tot. Refills 11, Maintenance, 07/17/24 9:25:00 AM EDT, Route to Pharmacy Electronically, [facility] #[id number], Partial fill upon patient request if the prescription is for a schedule II opioid drug., 170, cm, 01/22/24 9:20:00 EDT, Height,83, kg, 11/20/22 11:37:00 EDT, Dry Weight Start Date: 07/17/24 Status: Ordered Medication Dispense Status: Completed Quantity: 15.0 Unit: tablet Total Allowed Fills: 12 Fills Dispensed: 0 nitroglycerin 0.4 mg sublingual tablet 1 tablet = 0.4 mg, Sublingual, Every 5 minutes, PRN for chest pain, # 100 tablet, 0 Refills, Maintenance, 12/23/24 3:37:00 PM EDT, Tablet, [facility]/pharm[facility] #[id number], Partial fill upon patient request if the prescription is for a schedule II opioid drug., 170, cm, 01/22/24 9:20:00 EDT, Height Start Date: 12/23/24 Status: Ordered Medication Dispense Status: Completed Quantity: 100.0 Unit: tablet Total Allowed Fills: 1 Fills Dispensed: 0 rosuvastatin 40 mg oral tablet 1 tablet = 40 mg, By Mouth, Daily, # 90 tablet, 3 Refills, Maintenance, 03/29/23 1:41:00 PM EST, Tablet, [facility] #[id number], Partial fill upon patient request if the prescription is for a schedule IIopioid drug., 170, cm, 12/08/22 14:43:00 EDT, Height, 83, kg, 11/20/22 11:37:00 EDT, Dry Weight Start Date: 03/29/23 Status: Ordered Medication Dispense Status: Completed Quantity: 90.0 Unit: tablet Total Allowed Fills: 4 Fills Dispensed: 0 Mental Status Mental Status Assessment Assessment Assessment Component Result Effecti ve Date Bandar coma score total 15 Problem List Condition Confirmation Course Effective Dates Status Health St atus Informant STEMI (ST elevation myocardial infarction) Confirmed Active Vital Signs Most recent to oldest [Reference Range]: 1 Height 170 cm (03/05/25 10:49 AM) Weight 81 kg (03/05/25 10:49 AM) Oxygen Saturation [94-100 %] 96 % (03/05/25 10:49 AM) Pulse Rate [55-90 bpm] 71 bpm (03/05/25 10:49 AM) Body Mass Index [18.5-24.99 kg/m2] 28.03 kg/m2 *H* (03/05/25 10:49 AM) Blood Pressure [90-138/55-84 mm Hg] 127/ 63mm Hg (03/05/25 10:49 AM) Respiratory Rate [16-30 br/min] 18 br/mi n (03/05/25 10:49 AM) Temperature [96.8-100.4 DegF] 98.4 DegF (03/05/25 10:49 AM) Mode of Delivery (Oxygen) Room air (03/05/25 10:49 AM) Blood pressure sites Arm, left (03/05/25 10:49 AM) Temperature Route Oral (03/05/25 10:49 AM) Weight Obtained Via Patient/family state d (03/05/25 10:49 AM) Social History Social History Type Response Tobacco Use: 4 or less cigar ettes(less than 1/4 pack)/day in last 30 days. Sex Male Sex Representation Male (finding) Patient Care team information Care Team Personnel Name: Eulalia SIMMONS , Zamzam Butterfield Position: Reference Physician Member Role: PCP Address: [address] [place] [address] Telecom: Care Team Related Persons Name: SEAN ARRIOLA Name: SEAN ARRIOLA Name: SEAN ARRIOLA Name: SANDRA ARRIOLA Name: SANDRA ARRIOLA Insurance Providers Guarantor name: [employer] Health Plan Information #: 1 Payer: [employer] Payer Identifier: [employer]KEL Member Number: [id number] Group Number: [id number] Subscriber Identifier: [id number] Relationship to Subscriber: self Coverage Type: Self-pay (Includes applicants for insurance and Medicaid applicants) Coverage Verification Date: MYKEL Telecom: [employer]KEL Address:
--- OUTSIDE RECORDS SUMMARY | 2025-03-07 07:59 | XMS_ITS | Patient Health Record ---
Author Organization [facility] Address [address] [place] [address] Care Team Providers Care Docking Pilot Name Role Phone ZBIGNIEWZAMZAM SHINE Primary Care Provider Héctor Beltran [phone] Allergies Allergen (clinical drug ingredient) Drug/Non Drug [...] Problem Screening for malignant neoplasm of colon (945847854) Encounter for screening for malignant neoplasm of colon (Z12.11) Active confirmed Problem Preprocedural examination (348047467909871) Preprocedural examination (Z01.818) Active confirmed Plan Of Treatment Future Test Test Name Order Date COLONOSCOPY 07/16/2019 Insurance Providers Payer Name Payer Address Payer Phone Subscriber Number Group Number Insured Name Patient Relationship to Insured Coverage Start Date Coverage End Date [facility] [address] [place], [place] [id number] ZAMZAM ARRIOLA Self - patient is the insured Medical (General) History Medical History History ICD Code DVT in fall Kidney stones Denies [place],CVA,Lung disease,renal disease Diet-controlled diabetes Negative colonoscopy in 10/2008 Neg. celiac disease labs in 2009 Surgical History Surgery Date(Month/Year) Perianal fistula repair- Dr. Real-[id number] 0 Tonsillectomy and adenoidectomy
--- NOTE | 2025-03-07 08:27 | AM.OFFWIN_ITS ---
Intake Vital Signs 03/07/25 08:34 Weight 169 lb BP 120/62 Respiration 16 Pulse 64 Pulse Source Pulse Oximeter Temp 97.5 F Temp Source Oral Pulse Oximetry (%) 96 Intake Visit Reasons: ep sinus congestion nasuea Patient Tobacco Use Status: Current someday Tobacco user Accompanied by: Self / Same As Patient Allergies amoxicillin (Amoxicillin) Allergy (Unknown, Verified 03/05/25 15:24) UNKNOWN erythromycin base Allergy (Unknown, Verified 03/05/25 15:24) Unknown Environmental Allergy (Unknown, Uncoded 02/08/24 10:55) RUNNY NOSE HPI HPI Comments History of Present Illness Details This is a 59-year-old male with a past medical history of coronary artery disease, previous DVT currently maintained on Eliquis, diabetes and a recent diagnosis of sinusitis on March 05 in the emergency department, presenting for evaluation of continued right sided sinus pressure. The patient is antibiotic, azithromycin, yesterday and has taken a single dose. He denies having any fevers or chills but states he still has ?achiness? on the right side of his face. Patient states he was unable to return to work today in his requesting a work note. [facility] Medical History Hypertensive retinopathy of both eyes Post concussion syndrome STEMI (ST elevation myocardial infarction) Elevated cholesterol DVT (deep venous thrombosis) Diabetes Anal fistula Surgical History Hx of colonoscopy Family History Father No problems noted. Mother Pancreatic cancer Mental health disorder Paternal Grandfather No problems noted. Brother Myocardial infarction Mental health disorder Sister Breast cancer Social History Housing: Apartment Alcohol intake: current Alcohol intake frequency: holidays/special occasions only Patient Tobacco Use Status: Current someday Tobacco user Tobacco use type: Cigarette Cigarette Packs Per Day: 0.5 Cigarettes Per Day: 10 Years Smoked: quit 05/05/21 e-Cigarette/Vaping Use: Never Used Second Hand Smoke Exposure: No Substance Use Type: Marijuana Current occupational status: employed Cognitive needs: No Hearing needs: No Vision needs: No Review of Systems Const All systems reviewed & are unremarkable except as noted in HPI and below Denies body aches, Denies chills and Denies fever(s) Eyes Reports no additional complaints ENT Denies otalgia, Denies neck pain, Denies nose pain, Denies post nasal drip, Reports sinus pressure (R > L), Denies throat swelling and Denies tongue swelling Card Reports no additional complaints and Denies dyspnea Resp Reports no additional complaints, Denies chest congestion, Denies cough, Denies dyspnea and Denies wheezing GI Reports no additional complaints Reports no additional complaints Musc Reports no additional complaints and Denies neck pain Skin/Breast Reports system reviewed and no additional complaints, except as documented Neuro Reports no additional complaints Psych Reports no additional complaints Endo Reports no additional complaints Beny/Lymph Reports no additional complaints Aller/Immun Reports no additional complaints, Denies throat swelling, Denies tongue swelling and Denies wheezing Physical Exam Vital Signs: Last Vital Signs Temp 97.5 F 03/07/25 08:34 Pulse 64 03/07/25 08:34 Resp 16 03/07/25 08:34 BP 120/62 03/07/25 08:34 Pulse Ox 96 03/07/25 08:34 Const General: cooperative, healthy appearing, comfortable, no acute distress, well developed, alert, awake and Physically active; No ill appearing Nutritional Appearance: average body habitus Orientation/consciousness: patient oriented x3 Limitations: no limitations HEENT Head: Yes normal to inspection and Yes normocephalic Ears: hearing grossly normal bilaterally, external ears normal, TM's normal bilaterally and EAC's normal General nose exam: Normal external nose present Face and sinus: Yes normal facial exam and Yes sinus tenderness (right only) Mouth: Normal oral and palatal mucosa present, oropharynx normal, moist mucous membranes and breath no malodorous Throat: Yes posterior oropharynx normal (There is no edema, erythema or exudates of the posterior oropharynx) Eyes General: appearance normal, both eyes and all related structures Visual Mitchell: normal visual mitchell by confrontation Pupils: Equal, round and reactive pupils present EOM: EOMs intact bilaterally Direct Ophthalmoscopy: no photophobia Neck Lymphatic: no lymphadenopathy noted Resp Effort & Inspection: normal respiratory effort, not labored and not tachypneic Auscultation: clear to auscultation bilaterally Cardio Rate: regular rate Rhythm: regular rhythm Skin General skin exam: no rashes or lesions noted Neuro General: patient oriented x3 Cranial nerves: Yes Equal, round and reactive pupils present Psych Appearance: grossly normal Mental Status: mental status grossly normal Insight: Good insight present (Psych) Judgement: Good judgement present (Psych) Assessment & Plan Assessment & Plan (1) Acute frontal sinusitis: Comment: Patient is evaluated. His most recent visit to the emergency department, including imaging, is reviewed. Patient is afebrile and in no acute distress. Patient will be discharged home and instructed to continue taking his azithromycin as previously prescribed. Code(s): J01.10 - Acute frontal sinusitis, unspecified Qualifiers: Recurrence: not specified as recurrent Qualified Code(s): J01.10 - Acute frontal sinusitis, unspecified Plan: Azithromycin as previously prescribed; patient is instructed to continue therapy until complete and take Tylenol as needed for discomfort. Follow up only as needed. Coding Level of Care Code Est Pt Level 3 (72002) Diagnoses Acute frontal sinusitis, recurrence not specified J01.10 Recurrence: not specified as recurrent Time Spent (min) 20
[2025-03-07 08:34] VITALS: BP 120/62; PULSE 64; RESP 16; TEMP 36.4; O2SAT 96
== END 2025-03-07 08:57 | disposition home or self-care (01) ==
PROVIDERS: PCP Nurse Practitioner Family; Visit Provider Physician Assistant
DX: J01.10 Acute frontal sinusitis, unspecified (principal)